=== PATIENT | female | born 1950 | race Caucasian/White ===

== ENCOUNTER 2018-03-23 09:52 | Day surgery (SDC) | payer MEDICARE, OTHER ==
[2018-03-20 16:18] VITALS: BMI 36.8
[~2018-03-23 09:52] MED LIST: LACTATED RINGERS 1,000 ML IV SCH; LIDOCAINE 1% 20 ML VIAL (10MG/ML) FOR IV START INTRADERMA PRN
[2018-03-23 10:32] VITALS: RESP 16; TEMP 97.2
[2018-03-23] MEDS ORDERED: PROPOFOL 10 MG/ML 20 ML VIAL IV ONE (11:21)
[2018-03-23] MEDS ORDERED: LIDOCAINE 1% INJ 10MG/ML (20 ML MDV) ONE (11:21)
--- NOTE | 2018-03-23 11:44 | P.PCN ---
Date of Procedure: 03/23/18 Procedure(s) Performed: Brief history: Patient is a pleasant 75-year-old white female, scheduled for an elective upper endoscopy as well as colonoscopy as a part of evaluation of long-standing history of GERD/family history of esophageal cancer. She is also scheduled for colonoscopy as a part of screening for colorectal neoplasia Procedure performed: Esophagogastroduodenoscopy with biopsy Colonoscopy Preoperative diagnosis: Long-standing history of GERD Screening for colon cancer Anesthesia: MAC Procedure: After informed consent was obtained from the patient was brought into the endoscopy unit and IV sedation was administered by anesthesia under continuous monitoring. Initially upper endoscopy was done. The Olympus GF 160 video endoscope was inserted inserted into the mouth and esophagus intubated without any difficulty and was gradually advanced into the stomach and duodenum and carefully examined. The bulb and second part of the duodenum appeared normal. The scope was then withdrawn into the stomach adequately insufflated with air and upon careful examination the antrum had nodular gastritis and biopsies were done from this area. The body, cardia and fundus appeared normal. The scope was then withdrawn into the esophagus. The GE junction was located at 40 cm to the incisors. there were 2 small islands of Marlow's appearing mucosa just proximal to the GE junction measuring 1-2 mm in size both of which were biopsied. The GE junction was regular with no erythema erosions or ulcerations. Rest of the esophagus appeared normal. Patient tolerated the procedure well. At this time the patient continued to remain sedation. Initial digital rectal examination was normal. Olympus CF 160 video colonoscope was then inserted into the rectum and gradually advanced to the cecum without any difficulty. Careful examination was performed as the scope was gradually being withdrawn. The prep was excellent. The cecum, ascending colon, transverse colon, descending colon, sigmoid colon and rectum appeared normal. Retroflexion was performed in the rectum and no lesions were noted. Patient tolerated the procedure well. Impression: 1. 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 Colonoscopy was within normal limits with no evidence of colitis or colorectal neoplasia Recommendations: Findings of this examination were discussed with the patient as well as her family. She was advised to follow with the biopsy results. If the biopsy confirms presence of Marlow's esophagus, she can have a repeat upper endoscopy in 2 years. She can also have a repeat screening colonoscopy in 10 years
[2018-03-23 12:04] VITALS: BP 158/96; PULSE 70
== END 2018-03-23 12:39 | disposition home or self-care (01) ==
LOC: ORWHC2ENDO 09:52
PROVIDERS: ATTEND Internal Medicine Gastroenterology
DX: Z12.11 Encounter for screening for malignant neoplasm of colon (principal); K29.50 Unspecified chronic gastritis without bleeding; K21.0 Gastro-esophageal reflux disease with esophagitis; R19.4 Change in bowel habit; I10 Essential (primary) hypertension; E78.5 Hyperlipidemia, unspecified; Z72.0 Tobacco use; E07.9 Disorder of thyroid, unspecified; F39 Unspecified mood [affective] disorder; Z79.899 Other long term (current) drug therapy; Z80.0 Family history of malignant neoplasm of digestive organs; Z79.890 Hormone replacement therapy
CPT/HCPCS: 88305; 43239; J2001; J2704; G0121

== ENCOUNTER → 2018-03-26 | Outpatient (CLI) | payer MEDICARE, OTHER ==
--- NOTE | 2018-03-26 23:11 | BD ---
EXAMINATION TYPE: Axial Bone Density DATE OF EXAM: 03/26/2018 COMPARISON: NONE CLINICAL HISTORY: 68 year-old female age related osteoporosis Height: 65 Weight: 231.5 FRAX RISK QUESTIONS: Alcohol (3 or more units per day): no Family History (Parent hip fracture): no Glucocorticoids (More than 3mos): no (Ex: prednisone, prednisolone, methylprednisolone, dexamethasone, and hydrocortisone). History of Fracture in Adulthood: no Secondary Osteoporosis: 1. Type 1 Diabetes: no 2. Hyperthyroidism: no 3. Menopause before 45: no 4. Malnutrition: no 5. Chronic liver disease: no Rheumatoid Arthritis: no Current Tobacco Use: yes RISK FACTORS HISTORY OF: Surgery to Spine/Hip(right/left)/Wrist (right/left): lumbar spine surg When: 2 years ago Family History of Osteoporosis: yes Active: yes Diet low in dairy products/other sources of calcium: yes Postmenopausal woman: age 54 Lost more than 2 inches in height since high school: no MEDICATIONS: clotrimazole, tramadol, ropinirole, acyclovir, mupirocin, gabapentin, Thyroid Medications: thyroid How Lon years Additional History: EXAM MEASUREMENTS: Bone mineral densitometry was performed using the [employer] System. Bone mineral density about the R hip (g/cm2): 0.982 Bone mineral density about the L hip (g/cm2): 1.014 T Score values are as follows: -----R Neck: -0.4 -----L Neck: -0.2 -----R Total: 0.1 -----L Total: 0.4 Bone mineral density : baseline Bone mineral density about the L Wrist (g/cm2): 0.672 T Score values are as follows: -----Dist. R+U: -1.1 -----Prox. R+U: 0.9 -----Radius total: 0.0 Bone mineral density : baseline IMPRESSION: Normal (Values between +1 and -1 indicate normal bone mass) as measured in the left wrist and bilater al hips. Consider repeating this study in 5 years or sooner if there is some new clinical indication . NOTE: T-SCORE=SD OF THE YOUNG ADULT MEAN.
--- NOTE | 2018-04-02 09:36 | MM ---
Reason for exam: screening (asymptomatic). History: Patient is postmenopausal. Physical Findings: A clinical breast exam by your physician is recommended on an annual basis and results should be correlated with mammographic findings. MG 3D Screening Mammo W/Cad Bilateral CC and MLO view(s) were taken. No prior studies available for comparison. The breast tissue is almost entirely fat. Finding: There is a typically benign equal density (isodense), partially obscured round mass in the middle position of the right breast on MLO view. ASSESSMENT: Probably benign, BI-RAD 3 RECOMMENDATION: Follow-up diagnostic mammogram of the right breast in 6 months.
== END | disposition home or self-care (01) ==
LOC: RADMAMWWP 15:29
PROVIDERS: ATTEND Internal Medicine
DX: Z12.31 Encounter for screening mammogram for malignant neoplasm of breast (principal); M81.0 Age-related osteoporosis without current pathological fracture
CPT/HCPCS: 77063; 77067; 77080

== ENCOUNTER → 2018-05-21 | Outpatient (CLI) | payer MEDICARE, OTHER | END | disposition home or self-care (01) | LOC: LABWHC1 09:43 | PROVIDERS: ATTEND Nurse Practitioner Acute Care | DX: Z51.81 Encounter for therapeutic drug level monitoring (principal) | CPT/HCPCS: 36415; 82565; 84520 ==

== ENCOUNTER → 2018-06-22 | Outpatient (CLI) | payer MEDICARE, OTHER ==
[2018-06-22 07:56] LABS: Basophils % (A) 1 %; Eosinophils # (A) 0.2 k/uL (0-0.7); Eosinophils % (A) 3 %; HCT 47.3 % (34.0-46.0); HGB 15.6 gm/dL (11.4-16.0); Lymphocytes # (A) 0.7 k/uL (1.0-4.8); Lymphocytes % (A) 12 %; MCH 30.1 pg (25.0-35.0); MCV 91.3 fL (80.0-100.0); Mean Platelet Volume 6.3; Monocytes # (A) 0.4 k/uL (0-1.0); Monocytes % (A) 7 %; Neutrophils # (A) 4.1 k/uL (1.3-7.7); Neutrophils % (A) 75 %; Platelet Count 180 k/uL (150-450); RBC 5.18 m/uL (3.80-5.40); RDW 13.7 % (11.5-15.5); WBC 5.5 k/uL (3.8-10.6)
[2018-06-22 11:13] LABS: Albumin 4.2 g/dL (3.80-4.90); Albumin/Globulin Ratio 2.33 (1.60-3.17); Anion Gap 8.4 mmol/L (4.00-12.00); Calcium 9.2 mg/dL (8.7-10.3); Carbon Dioxide 31.6 mmol/L (21.6-31.8); Globulin 1.8 g/dL (1.6-3.3); LDL Cholesterol,Calculated 90.2 mg/dL (0.0-131.0); Potassium 4.5 mmol/L (3.5-5.5); Total Bilirubin 0.8 mg/dL (0.2-1.2); VLDL Calculation 67.8 mg/dL (5.00-40.00)
[2018-06-22 11:20] LABS: T4, Free (Free Thyroxine) 1.3 ng/dL (0.80-1.80)
== END | disposition home or self-care (01) ==
LOC: LABWHC1 06:49
PROVIDERS: ATTEND Internal Medicine
DX: Z00.00 Encounter for general adult medical examination without abnormal findings (principal); E78.00 Pure hypercholesterolemia, unspecified; G35 Multiple sclerosis
CPT/HCPCS: 36415; 80053; 80061; 82607; 82746; 84439; 84443; 85025

== ENCOUNTER → 2018-08-16 | Outpatient (CLI) | payer MEDICARE, OTHER ==
[2018-08-16 12:02] LABS: Basophils % (A) 1 %; Eosinophils # (A) 0.3 k/uL (0-0.7); Eosinophils % (A) 4 %; HCT 47.4 % (34.0-46.0); HGB 15.5 gm/dL (11.4-16.0); Lymphocytes # (A) 0.6 k/uL (1.0-4.8); Lymphocytes % (A) 9 %; MCH 29.4 pg (25.0-35.0); MCHC 32.7 g/dL (31.0-37.0); Mean Platelet Volume 7.6; Monocytes # (A) 0.3 k/uL (0-1.0); Monocytes % (A) 4 %; Neutrophils # (A) 5.7 k/uL (1.3-7.7); Neutrophils % (A) 80 %; Platelet Count 280 k/uL (150-450); RBC 5.27 m/uL (3.80-5.40); RDW 14.5 % (11.5-15.5); WBC 7.2 k/uL (3.8-10.6)
[2018-08-16 20:29] LABS: Albumin 4.7 g/dL (3.80-4.90); Albumin/Globulin Ratio 2.94 (1.60-3.17); Anion Gap 9.3 mmol/L (4.00-12.00); Calcium 9.6 mg/dL (8.7-10.3); Carbon Dioxide 25.7 mmol/L (21.6-31.8); Globulin 1.6 g/dL (1.6-3.3); Total Bilirubin 0.5 mg/dL (0.2-1.2); Total Protein 6.3 g/dL (6.2-8.2)
[2018-08-16 20:43] LABS: Vitamin D 25 Hydroxy 28.9 ng/mL (30.0-100.0)
== END | disposition home or self-care (01) ==
LOC: LABWHC1 10:24
PROVIDERS: ATTEND Nurse Practitioner Acute Care
DX: G35 Multiple sclerosis (principal); E55.9 Vitamin D deficiency, unspecified; M35.3 Polymyalgia rheumatica
CPT/HCPCS: 36415; 80053; 82306; 82607; 84207; 85025

== ENCOUNTER → 2018-10-30 | Outpatient (CLI) | payer MEDICARE, OTHER ==
[2018-10-30 09:00] LABS: Basophils % (A) 1 %; Eosinophils # (A) 0.3 k/uL (0-0.7); Eosinophils % (A) 5 %; HCT 44.7 % (34.0-46.0); HGB 14.2 gm/dL (11.4-16.0); Lymphocytes # (A) 0.6 k/uL (1.0-4.8); Lymphocytes % (A) 12 %; MCH 28.1 pg (25.0-35.0); MCHC 31.8 g/dL (31.0-37.0); MCV 88.3 fL (80.0-100.0); Mean Platelet Volume 7.1; Monocytes # (A) 0.3 k/uL (0-1.0); Monocytes % (A) 5 %; Neutrophils # (A) 3.6 k/uL (1.3-7.7); Neutrophils % (A) 73 %; Platelet Count 212 k/uL (150-450); RBC 5.06 m/uL (3.80-5.40); RDW 12.8 % (11.5-15.5)
[2018-10-30 16:40] LABS: African American GFR (CKD) 66.6 (60.0-200.0); Albumin 4.5 g/dL (3.80-4.90); Albumin/Globulin Ratio 2.25 (1.60-3.17); Anion Gap 11.1 mmol/L (4.00-12.00); Calcium 9.4 mg/dL (8.7-10.3); Carbon Dioxide 27.9 mmol/L (21.6-31.8); Potassium 4.8 mmol/L (3.5-5.5); Total Bilirubin 0.5 mg/dL (0.3-1.2); Total Protein 6.5 g/dL (6.2-8.2)
== END | disposition home or self-care (01) ==
LOC: LABWHC1 08:09
PROVIDERS: ATTEND Nurse Practitioner Acute Care
DX: E55.9 Vitamin D deficiency, unspecified (principal); G35 Multiple sclerosis; Z51.81 Encounter for therapeutic drug level monitoring
CPT/HCPCS: 36415; 80053; 82607; 84207; 85025

== ENCOUNTER → 2018-11-21 | Outpatient (CLI) | payer MEDICARE, OTHER ==
--- NOTE | 2018-11-21 14:37 | US ---
EXAMINATION TYPE: US liver DATE OF EXAM: 11/21/2018 COMPARISON: NONE CLINICAL HISTORY: R94.5 Abnormal LFT. abnormal labs. No pain. NPO. EXAM MEASUREMENTS: Liver Length: 18.7 cm Gallbladder Wall: 0.2 cm CBD: 0.3 cm CHD: 0.3 cm Right Kidney: 10.5 x 5.1 x 4.8 cm Pancreas: Appears echogenic in appearance Liver: Moderate fatty infiltration liver with diminished attenuation in heterogenous appearance. Gallbladder: Mobile echogenic focus with shadow- 1.4 cm Evidence for sonographic Simmons's sign: neg CBD: wnl CHD: wnl Right Kidney: Lower pole appears hyperechoic compared to upper pole, could be technical IMPRESSION: 1. Cholelithiasis. 2. Moderate fatty infiltration liver.
== END | disposition home or self-care (01) ==
LOC: RADUSWWP 07:49
PROVIDERS: ATTEND Internal Medicine Geriatric Medicine
DX: K76.0 Fatty (change of) liver, not elsewhere classified (principal); K80.20 Calculus of gallbladder without cholecystitis without obstruction
CPT/HCPCS: 76705

== ENCOUNTER → 2018-12-17 | Outpatient (CLI) | payer MEDICARE, OTHER ==
--- NOTE | 2018-12-17 08:39 | MM ---
Reason for exam: follow-up at short interval from prior study. Last mammogram was performed 9 months ago. History: Patient is postmenopausal. Physical Findings: Nurse did not find any significant physical abnormalities on exam. MG 3D Diag Mammo W/Cad RT CC and MLO view(s) were taken of the right breast. Prior study comparison: March 26, 2018, bilateral MG 3d screening mammo w/cad. There are scattered fibroglandular densities. Stable superficial nodule. No significant new findings when compared with previous films. These results were verbally communicated with the patient and result sheet given to the patient on 12/17/18. ASSESSMENT: Benign, BI-RAD 2 RECOMMENDATION: Return to routine screening mammogram schedule for both breasts. Back on schedule.
== END ==
LOC: RADMAMWWP 07:15
PROVIDERS: ATTEND Internal Medicine
DX: R92.8 Other abnormal and inconclusive findings on diagnostic imaging of breast (principal); R92.2 Inconclusive mammogram
CPT/HCPCS: 77061; 77065

== ENCOUNTER → 2019-01-24 | Outpatient (CLI) | payer MEDICARE, OTHER ==
[2019-01-24 17:53] LABS: African American GFR (CKD) 75.6 (60.0-200.0); Albumin 4.5 g/dL (3.80-4.90); Calcium 9.2 mg/dL (8.7-10.3); Chol/HDL Ratio 2.88; Globulin 1.5 g/dL (1.6-3.3); LDL Cholesterol,Calculated 80.2 mg/dL (0.0-131.0); Potassium 4.6 mmol/L (3.5-5.5); Total Bilirubin 0.4 mg/dL (0.2-1.2); VLDL Calculation 47.8 mg/dL (5.00-40.00)
[2019-01-24 21:37] LABS: Hemoglobin A1C 6.3 % (4.0-6.0)
== END | disposition home or self-care (01) ==
LOC: LABWHC1 11:16
PROVIDERS: ATTEND Internal Medicine
DX: E11.9 Type 2 diabetes mellitus without complications (principal); E03.9 Hypothyroidism, unspecified; K76.0 Fatty (change of) liver, not elsewhere classified
CPT/HCPCS: 36415; 80053; 80061; 83036; 84443

== ENCOUNTER → 2019-04-08 | Outpatient (CLI) | payer MEDICARE, OTHER ==
[2019-04-08 16:45] LABS: ALT 88 U/L (8-44); AST 54 U/L (13-35); Albumin/Globulin Ratio 2.71 (1.60-3.17); Alkaline Phosphatase 105 U/L (41-126); Bilirubin, Conjugated <0.20 mg/dL (0.20-0.40); Globulin 1.7 g/dL (1.6-3.3); Total Bilirubin 0.4 mg/dL (0.3-1.2); Total Protein 6.3 g/dL (6.2-8.2)
[2019-04-09 17:38] LABS: Hepatitis A Antibody IgM Non-Reactive (Non-Reactive); Hepatitis B Core IgM Non-Reactive (Non-Reactive); Hepatitis B Surface Antigen Non-Reactive (Non-Reactive); Hepatitis C IgG Antibody Non-Reactive (Non-Reactive)
== END | disposition home or self-care (01) ==
LOC: LABWHC1 07:44
PROVIDERS: ATTEND Nurse Practitioner
DX: K76.0 Fatty (change of) liver, not elsewhere classified (principal)
CPT/HCPCS: 36415; 80074; 80076; 81596

== ENCOUNTER → 2019-06-12 | Outpatient (CLI) | payer MEDICARE, OTHER ==
[2019-06-12 10:31] LABS: Basophils # (A) 0.1 k/uL (0-0.2); Basophils % (A) 1 %; Eosinophils # (A) 0.1 k/uL (0-0.7); Eosinophils % (A) 3 %; HCT 44.4 % (34.0-46.0); HGB 13.9 gm/dL (11.4-16.0); Lymphocytes # (A) 0.6 k/uL (1.0-4.8); Lymphocytes % (A) 13 %; MCH 28.2 pg (25.0-35.0); MCHC 31.2 g/dL (31.0-37.0); MCV 90.3 fL (80.0-100.0); Mean Platelet Volume 7.9; Monocytes # (A) 0.2 k/uL (0-1.0); Monocytes % (A) 6 %; Neutrophils % (A) 74 %; Platelet Count 222 k/uL (150-450); RBC 4.92 m/uL (3.80-5.40); RDW 13.1 % (11.5-15.5); WBC 4.1 k/uL (3.8-10.6)
[2019-06-12 16:42] LABS: African American GFR (CKD) 75.1 (60.0-200.0); Albumin 4.4 g/dL (3.80-4.90); Albumin/Globulin Ratio 2.75 (1.60-3.17); Anion Gap 9.1 mmol/L (4.00-12.00); BUN/Creat Ratio 23.33 Ratio (12.00-20.00); Calcium 9.5 mg/dL (8.7-10.3); Carbon Dioxide 29.9 mmol/L (21.6-31.8); Globulin 1.6 g/dL (1.6-3.3); Non-African American GFR(CKD) 64.8 (60.0-200.0); Potassium 4.9 mmol/L (3.5-5.5); Total Bilirubin 0.4 mg/dL (0.2-1.2)
[2019-06-12 18:41] LABS: Hemoglobin A1C 5.8 % (4.0-6.0)
== END | disposition home or self-care (01) ==
LOC: LABWHC1 08:38
PROVIDERS: ATTEND Internal Medicine
DX: K76.0 Fatty (change of) liver, not elsewhere classified (principal); E78.00 Pure hypercholesterolemia, unspecified; E11.9 Type 2 diabetes mellitus without complications; E03.9 Hypothyroidism, unspecified; E55.9 Vitamin D deficiency, unspecified; R53.83 Other fatigue
CPT/HCPCS: 36415; 80053; 82306; 82550; 82607; 83036; 84207; 84443; 85025

== ENCOUNTER → 2019-10-14 | Outpatient (CLI) | payer MEDICARE, OTHER ==
[2019-10-14 11:11] LABS: Albumin 4.3 g/dL (3.5-5.0); Calcium 9.5 mg/dL (8.4-10.2); Potassium 4.7 mmol/L (3.5-5.1); Total Bilirubin 0.6 mg/dL (0.2-1.3); Total Protein 7.1 g/dL (6.3-8.2)
--- NOTE | 2019-10-15 11:06 | MM ---
Reason for exam: screening (asymptomatic). Last mammogram was performed 10 months ago. History: Patient is postmenopausal. Physical Findings: A clinical breast exam by your physician is recommended on an annual basis and results should be correlated with mammographic findings. MG 3D Screening Mammo W/Cad Bilateral CC and MLO view(s) were taken. Prior study comparison: December 17, 2018, right breast MG 3d diag mammo w/cad RT. March 26, 2018, bilateral MG 3d screening mammo w/cad. There are scattered fibroglandular densities. Finding: There is an intermediate concern, suspicious 8 mm high density mass in the upper outer quadrant of the right breast consistent with mass. New finding since December 17, 2018 and March 26, 2018. ASSESSMENT: Incomplete: need additional imaging evaluation, BI-RAD 0 RECOMMENDATION: Ultrasound of the right breast. [facility] will attempt to contact patient to return for ultrasound.
== END | disposition home or self-care (01) ==
LOC: RADMAMWWP 09:58
PROVIDERS: ATTEND Internal Medicine
DX: Z12.31 Encounter for screening mammogram for malignant neoplasm of breast (principal); I10 Essential (primary) hypertension
CPT/HCPCS: 77063; 77067; 80053; 80061

== ENCOUNTER → 2019-10-24 | Outpatient (CLI) | payer MEDICARE, OTHER ==
--- NOTE | 2019-10-24 10:24 | USB ---
Reason for exam: additional evaluation requested from abnormal screening. History: Patient is postmenopausal. Physical Findings: Nurse Summary: right breast 11 o'clock superficial sebaceous cyst x 7 years per patient, increased in size x 6 months (nurse mj). US Breast Workup Limited RT Technologist: Mounika Frey Right limited breast ultrasound including focal area of concern, retroareolar and axilla demonstrates a 0.8 x 0.8 x 0.6cm circular, solid lesion at 11 o'clock extending to dermal layer. Can be seen om skin surface per nurse. These results were verbally communicated with the patient and result sheet given to the patient on 10/24/19. ASSESSMENT: Low Suspicious BI-RAD 4A RECOMMENDATION: Favor Benign lesion such as epidermal inclusion cyst but Surgical consultation of the right breast. Dermatology consult for excision advised to rule out malignancy in palpable enlarging lesion. Called Dr. Garcia's office with mammographic findings and office to contact patient to set up dermatology consult. PRELIMINARY REPORT CALLED AND FAXED TO DR. GARCIA ON 10/24/19. [facility]
== END | disposition home or self-care (01) ==
LOC: RADUSWWP 09:28
PROVIDERS: ATTEND Internal Medicine
DX: R92.8 Other abnormal and inconclusive findings on diagnostic imaging of breast (principal)

== ENCOUNTER → 2019-10-29 | Outpatient (CLI) | payer MEDICARE, OTHER ==
--- NOTE | 2019-10-29 12:17 | FL ---
Modified barium swallow. HISTORY: Dysphagia. Modified barium swallow was performed with the department of speech pathology. The patient was prese nted with various consistencies of barium. There is no evidence for aspiration or penetration. Full report is to follow from the department of speech pathology. Impression: Normal study.
== END | disposition home or self-care (01) ==
LOC: RADFLMAIN 10:56
PROVIDERS: ATTEND Psychiatry & Neurology Neurology
DX: R13.10 Dysphagia, unspecified (principal)
CPT/HCPCS: 74230

== ENCOUNTER → 2019-11-12 | Outpatient (CLI) | payer MEDICARE, OTHER ==
[2019-11-12 11:07] LABS: Basophils % (A) 1 %; Eosinophils # (A) 0.1 k/uL (0-0.7); Eosinophils % (A) 4 %; HCT 40.7 % (34.0-46.0); HGB 13.1 gm/dL (11.4-16.0); Lymphocytes # (A) 0.4 k/uL (1.0-4.8); Lymphocytes % (A) 10 %; MCH 28.5 pg (25.0-35.0); MCHC 32.2 g/dL (31.0-37.0); MCV 88.4 fL (80.0-100.0); Mean Platelet Volume 7.6; Monocytes # (A) 0.2 k/uL (0-1.0); Monocytes % (A) 6 %; Neutrophils # (A) 2.6 k/uL (1.3-7.7); Neutrophils % (A) 75 %; Platelet Count 163 k/uL (150-450); RBC 4.61 m/uL (3.80-5.40); RDW 14.7 % (11.5-15.5); WBC 3.5 k/uL (3.8-10.6)
[2019-11-12 16:55] LABS: African American GFR (CKD) 75.1 (60.0-200.0); Albumin 4.1 g/dL (3.80-4.90); Albumin/Globulin Ratio 2.41 (1.60-3.17); Anion Gap 6.4 mmol/L (4.00-12.00); BUN/Creat Ratio 24.44 Ratio (12.00-20.00); Calcium 9.2 mg/dL (8.7-10.3); Carbon Dioxide 30.6 mmol/L (21.6-31.8); Chol/HDL Ratio 2.03; Globulin 1.7 g/dL (1.6-3.3); LDL Cholesterol,Calculated 64.2 mg/dL (0.0-131.0); Non-African American GFR(CKD) 64.8 (60.0-200.0); Total Bilirubin 0.5 mg/dL (0.2-1.2); Total Protein 5.8 g/dL (6.2-8.2); VLDL Calculation 16.8 mg/dL (5.00-40.00)
[2019-11-12 18:29] LABS: Hemoglobin A1C 6.4 % (4.0-6.0)
== END | disposition home or self-care (01) ==
LOC: LABWHC1 09:34
PROVIDERS: ATTEND Internal Medicine
DX: I10 Essential (primary) hypertension (principal); G35 Multiple sclerosis; E11.9 Type 2 diabetes mellitus without complications; E78.00 Pure hypercholesterolemia, unspecified
CPT/HCPCS: 36415; 80053; 80061; 83036; 85025

== ENCOUNTER 2019-11-25 16:28 | Emergency (ER) | payer MEDICARE, OTHER ==
[2019-11-25 16:40] VITALS: BP 145/73; PULSE 92; RESP 18; TEMP 98.2
--- NOTE | 2019-11-25 18:16 | CT ---
EXAMINATION TYPE: CT facial bones wo con DATE OF EXAM: 11/25/2019 COMPARISON: None HISTORY: fall injury CT DLP: 1239.1 mGycm Automated exposure control for dose reduction was used. Images were obtained from the bottom of the mandible to the top of the frontal sinuses without contra st. The mandibular ring appears intact. Temporomandibular joints appear intact. Zygomatic arches appear n ormal. Nasal bone appears intact. There is no evidence of orbital blowout fracture. There is normal a eration of the paranasal sinuses. Orbital margins are intact. There is no evidence of retro-orbital m ass. The globes are symmetric. There is mild left frontal scalp soft tissue swelling. The frontal bon e appears intact. IMPRESSION: No fracture seen. Mild frontal scalp soft tissue swelling.
--- NOTE | 2019-11-25 18:24 | CT ---
EXAMINATION TYPE: CT brain luis carlos olivarez DATE OF EXAM: 11/25/2019 COMPARISON: None HISTORY: fall injury CT DLP: 1239.1 mGycm Automated exposure control for dose reduction was used. There is some cerebral cortical atrophy. There is no mass effect nor midline shift. There is no sign of intracranial hemorrhage. The calvarium is intact. Cervical vertebra have normal alignment. There is old anterior fusion surgery from C4 to C7. There is anterior spur formation at C6-7 and C7-T1. Facet joints are intact. There is a mild relative spinal stenosis at levels from C4 to C6. The skull base is intact. There is normal aeration of the temporal bones. IMPRESSION: Cerebral atrophy. No acute intracranial abnormality. Cervical spine fusion surgery. Multilevel spondylotic changes. Mild relative spinal stenosis in the l ower cervical spine. No cervical spine fracture seen.
--- NOTE | 2019-11-25 18:57 | ED ---
Head Injury HPI - General Chief complaint: Head Injury Stated complaint: Fall Time Seen by Provider: 11/25/19 16:35 Source: patient Mode of arrival: wheelchair Limitations: physical limitation - History of Present Illness Initial comments: Patient is a 6-year-old female past history of MS who presents emergency department after she sustained a fall. Patient states that she was going to her doctor's office to receive a steroid injection. She went to step over a curb when she did not clear the step and fell forward hitting her nasal bridge and left side of her forehead. Denies losing consciousness. She is not on any blood thinners. She did go into the office and was evaluated. They cleaned the wound and placed a Band-Aid over the site. She did have some epistaxis that stopped. Her primary care doctor did recommend that she went to the emergency department for evaluation. She denies headache or visual changes. No neck or back pain. No numbness, tingling or weakness in her extremities. Denies any additional injuries. No nausea or vomiting. No other alleviating, precipitating or modifying factors - Related Data Home Medications Medication Instructions Recorded Confirmed Acyclovir [Zovirax] 400 mg PO BID 03/20/18 03/23/18 Amitriptyline HCl [Elavil] 50 mg PO HS 03/20/18 03/23/18 Aspirin [Adult Low Dose Aspirin EC] 81 mg PO DAILY 03/20/18 03/23/18 Colestipol HCl 2 tab PO BID 03/20/18 03/23/18 Dimethyl Fumarate [Tecfidera] 240 mg PO BID 03/20/18 03/23/18 Ezetimibe [Zetia] 10 mg PO HS 03/20/18 03/23/18 Gabapentin [Neurontin] 600 mg PO BID 03/20/18 03/23/18 Levothyroxine Sodium 25 mcg PO DAILY 03/20/18 03/23/18 Omeprazole [PriLOSEC] 20 mg PO AC-BRKFST 03/20/18 03/23/18 buPROPion HCL [Wellbutrin XL] 300 mg PO DAILY 03/20/18 03/23/18 lisinopriL 40 mg PO HS 03/20/18 03/23/18 modafiniL [Provigil] 200 mg PO DAILY 11/13/18 11/16/18 rOPINIRole HCL [Requip] 1 mg PO HS 03/20/18 03/23/18 Allergies/Adverse reactions: Allergies Allergy/AdvReac Type Severity Reaction Status Date / Time No Known Allergies Allergy Verified 11/25/19 16:40 Review of Systems ROS Statement: Those systems with pertinent positive or pertinent negative responses have been documented in the HPI. ROS Other: All systems not noted in ROS Statement are negative. Past Medical History Past Medical History: Diabetes Mellitus, GERD/Reflux, Hyperlipidemia, Hypertension, Osteoarthritis (OA), Thyroid Disorder Additional Past Medical History / Comment(s): MULTIPLE SCLEROSIS, GENITAL HERPES, ANEMIA, OCCASIONAL IRREGULAR HEART BEAT., HX OF DIABETES WITH INSULIN - NO RX NOW., USES WALKER AND W/C PRN. History of Any Multi-Drug Resistant Organisms: None Reported Past Surgical History: Back Surgery, Orthopedic Surgery Additional Past Surgical History / Comment(s): CARPAL TUNNEL, (2) SPINAL SURGERIES., EYELID SURGERY., NOSE SURGERY. Past Anesthesia/Blood Transfusion Reactions: No Reported Reaction, Motion Sickness Past Psychological History: No Psychological Hx Reported Smoking Status: Former smoker Past Alcohol Use History: Occasional Past Drug Use History: None Reported - Past Family History Mother Family Medical History: Cancer Additional Family Medical History / Comment(s): LEUKEMIA Brother(s) Family Medical History: Cancer Additional Family Medical History / Comment(s): BROTHER # 1 ESOPHAGEAL CANCER. BROTHER #2 PANCREATIC CANCER. BROTHER #3 STOMACH & ESOPHAGEAL CANCER General Exam Limitations: physical limitation General appearance: alert, in no apparent distress Head exam: Present: normocephalic, other (hematoma left frontal scalp - 2.5 x 2.0 cm. abrasion over nasal bridge - 1.5 x 1.0 cm. No active bleeding. No nasal hematoma. ) Eye exam: Present: normal appearance, PERRL, EOMI. Absent: scleral icterus, conjunctival injection, periorbital swelling ENT exam: Present: normal exam, mucous membranes moist Neck exam: Present: normal inspection. Absent: tenderness, meningismus, lymphadenopathy Respiratory exam: Present: normal lung sounds bilaterally. Absent: respiratory distress, wheezes, rales, rhonchi, stridor Cardiovascular Exam: Present: regular rate, normal rhythm, normal heart sounds. Absent: systolic murmur, diastolic murmur, rubs, gallop, clicks Extremities exam: Present: normal inspection, full ROM, normal capillary refill. Absent: tenderness, pedal edema, joint swelling, calf tenderness Course Vital Signs 11/25/19 16:36 Temperature 98.2 F Pulse Rate 92 Respiratory 18 Rate Blood Pressure 145/73 O2 Sat by Pulse 97 Oximetry Medical Decision Making - Medical Decision Making Upon arrival the patient was placed into room 22. A thorough history and physical exam was performed. No signs of septal hematoma. The patient was sent for a CT of her brain, cervical spine and facial bones. CT of the head and cervical spine demonstrates cerebral atrophy with no acute intercranial abnorma l. Cervical spine fusion surgery with multilevel spondylitic changes. Mild relative spinal stenosis in the lower cervical spine. No cervical spine fracture. CT of the facial bones demonstrates no acute fracture. Mild frontal scalp soft tissue swelling. Patient is reevaluated. Continues to refuse pain medications. I did discuss the diagnosis, differential and treatment options. Patient will be discharged home at this time is to follow-up with her primary care physician in 2-4 days. Return to the emergency department for any new or worsening symptoms. Patient was discharged home in stable condition Disposition Clinical Impression: Contusion of scalp, Concussion without loss of consciousness Disposition: HOME SELF-CARE Condition: Stable Instructions (If sedation given, give patient instructions): Concussion (ED) Additional Instructions: Please follow-up with your primary care doctor. Return to the emergency room for any new or worsening symptoms Is patient prescribed a controlled substance at d/c from ED?: No Referrals: Nancy Knight MD [Primary Care Provider] - 1-2 days Time of Disposition: 18:56
== END 2019-11-25 19:10 | disposition home or self-care (01) ==
LOC: EC 16:28
DX: S06.0X0A Concussion without loss of consciousness, initial encounter (principal); S00.03XA Contusion of scalp, initial encounter; S00.31XA Abrasion of nose, initial encounter; G31.9 Degenerative disease of nervous system, unspecified; M48.02 Spinal stenosis, cervical region; E11.9 Type 2 diabetes mellitus without complications; E78.5 Hyperlipidemia, unspecified; K21.9 Gastro-esophageal reflux disease without esophagitis; I10 Essential (primary) hypertension; E07.9 Disorder of thyroid, unspecified; G35 Multiple sclerosis; Z79.4 Long term (current) use of insulin; Z79.82 Long term (current) use of aspirin; Z79.890 Hormone replacement therapy; Z79.899 Other long term (current) drug therapy; Z99.89 Dependence on other enabling machines and devices; Z87.891 Personal history of nicotine dependence; W18.39XA Other fall on same level, initial encounter
CPT/HCPCS: 70450; 70486; 72125; 99284

== ENCOUNTER → 2020-04-15 | Outpatient (CLI) | payer MEDICARE, OTHER ==
[2020-04-15 08:27] LABS: Basophils % (A) 1 %; Eosinophils # (A) 0.2 k/uL (0-0.7); Eosinophils % (A) 5 %; HCT 43.7 % (34.0-46.0); Lymphocytes # (A) 0.6 k/uL (1.0-4.8); Lymphocytes % (A) 13 %; MCH 27.6 pg (25.0-35.0); MCV 86.3 fL (80.0-100.0); Mean Platelet Volume 7.8; Monocytes # (A) 0.3 k/uL (0-1.0); Monocytes % (A) 6 %; Neutrophils # (A) 3.5 k/uL (1.3-7.7); Neutrophils % (A) 74 %; Platelet Count 218 k/uL (150-450); RBC 5.06 m/uL (3.80-5.40); RDW 13.8 % (11.5-15.5); WBC 4.7 k/uL (3.8-10.6)
[2020-04-15 15:41] LABS: African American GFR (CKD) 65.6 (60.0-200.0); Albumin 4.6 g/dL (3.80-4.90); Albumin/Globulin Ratio 2.71 (1.60-3.17); Anion Gap 10.5 mmol/L (4.00-12.00); Calcium 9.6 mg/dL (8.7-10.3); Carbon Dioxide 26.5 mmol/L (21.6-31.8); Chol/HDL Ratio 2.49; Globulin 1.7 g/dL (1.6-3.3); Non-African American GFR(CKD) 56.6 (60.0-200.0); Potassium 4.9 mmol/L (3.5-5.5); Total Bilirubin 0.4 mg/dL (0.3-1.2); Total Protein 6.3 g/dL (6.2-8.2)
[2020-04-15 17:18] LABS: Hemoglobin A1C 6.3 % (4.0-6.0)
== END | disposition home or self-care (01) ==
LOC: LABWHC1 07:31
PROVIDERS: ATTEND Internal Medicine
DX: I10 Essential (primary) hypertension (principal); E11.9 Type 2 diabetes mellitus without complications; E78.00 Pure hypercholesterolemia, unspecified; E03.9 Hypothyroidism, unspecified
CPT/HCPCS: 36415; 80053; 80061; 83036; 84443; 85025

== ENCOUNTER → 2020-08-18 | Outpatient (CLI) | payer MEDICARE, OTHER ==
[2020-08-18 18:48] LABS: Basophils # (A) 0.03 X 10*3/uL (0.00-0.10); Basophils % (A) 0.6 %; Eosinophils % (A) 3.8 %; HCT 45.6 % (37.2-46.3); HGB 13.6 g/dL (12.0-15.0); Lymphocytes # (A) 0.59 X 10*3/uL (0.90-5.00); Lymphocytes % (A) 11.1 %; MCH 25.1 pg (27.0-32.0); MCHC 29.8 g/dL (32.0-37.0); MCV 84.1 fL (80.0-97.0); Mean Platelet Volume 11.7 fL (9.5-12.2); Monocytes # (A) 0.41 X 10*3/uL (0.20-1.00); Monocytes % (A) 7.7 %; Neutrophils # (A) 4.07 X 10*3/uL (1.80-7.70); Neutrophils % (A) 76.4 %; Platelet Count 223 X 10*3/uL (140-440); RBC 5.42 X 10*6/uL (4.10-5.20); RDW 16.2 % (11.5-14.5); WBC 5.32 X 10*3/uL (4.50-10.00)
[2020-08-18 19:16] LABS: Anion Gap 8.1 mmol/L (4.00-12.00); Carbon Dioxide 24.9 mmol/L (21.6-31.8); Chol/HDL Ratio 3.07; LDL Cholesterol,Calculated 112.2 mg/dL (0.0-131.0); Potassium 4.6 mmol/L (3.5-5.5); VLDL Calculation 34.8 mg/dL (5.00-40.00)
[2020-08-18 19:17] LABS: African American GFR (CKD) 74.6 (60.0-200.0); Albumin 4.7 g/dL (3.80-4.90); Albumin/Globulin Ratio 2.94 (1.60-3.17); BUN/Creat Ratio 22.22 Ratio (12.00-20.00); Calcium 9.8 mg/dL (8.7-10.3); Globulin 1.6 g/dL (1.6-3.3); Non-African American GFR(CKD) 64.3 (60.0-200.0); Total Bilirubin 0.4 mg/dL (0.3-1.2); Total Protein 6.3 g/dL (6.2-8.2)
[2020-08-18 20:58] LABS: Hemoglobin A1C 6.4 % (4.0-6.0)
== END | disposition home or self-care (01) ==
LOC: LABWHC1 07:58
PROVIDERS: ATTEND Internal Medicine
DX: E03.9 Hypothyroidism, unspecified (principal); I10 Essential (primary) hypertension; E11.9 Type 2 diabetes mellitus without complications
CPT/HCPCS: 36415; 80053; 80061; 83036; 84443; 85025

== ENCOUNTER 2020-09-16 22:51 | Inpatient (IN) | payer MEDICARE, OTHER ==
--- NOTE | 2020-09-16 23:11 | ED ---
General Adult HPI - General Stated complaint: syncope Time Seen by Provider: 09/16/20 23:03 - History of Present Illness Initial comments: 70-year-old female with a past medical histories of diabetes mellitus, hyperlipidemia, hypertension, GERD, multiple sclerosis presents to the emergency room for a chief complaint of syncope. Patient reports that she stood up from sitting in a chair and must have passed out. She states the next thing she remembers she was laying on the floor. Patient states she has neck pain and upper back pain with movement. Patient denies any chest pain. Patient does admit she didn't feel well before standing up, thinks she may have felt a bit lightheaded.Patient has no other complaints at this time including shortness of breath, chest pain, abdominal pain, nausea or vomiting, headache, or visual changes. - Related Data Home Medications Medication Instructions Recorded Confirmed Acyclovir [Zovirax] 400 mg PO BID 03/20/18 03/23/18 Amitriptyline HCl [Elavil] 50 mg PO HS 03/20/18 03/23/18 Aspirin [Adult Low Dose Aspirin EC] 81 mg PO DAILY 03/20/18 03/23/18 Colestipol HCl 2 tab PO BID 03/20/18 03/23/18 Dimethyl Fumarate [Tecfidera] 240 mg PO BID 03/20/18 03/23/18 Ezetimibe [Zetia] 10 mg PO HS 03/20/18 03/23/18 Gabapentin [Neurontin] 600 mg PO BID 03/20/18 03/23/18 Levothyroxine Sodium 25 mcg PO DAILY 03/20/18 03/23/18 Omeprazole [PriLOSEC] 20 mg PO AC-BRKFST 03/20/18 03/23/18 buPROPion HCL [Wellbutrin XL] 300 mg PO DAILY 03/20/18 03/23/18 lisinopriL 40 mg PO HS 03/20/18 03/23/18 modafiniL [Provigil] 200 mg PO DAILY 03/20/18 03/23/18 rOPINIRole HCL [Requip] 1 mg PO HS 03/20/18 03/23/18 Allergies Allergy/AdvReac Type Severity Reaction Status Date / Time No Known Allergies Allergy Verified 09/16/20 23:22 Review of Systems ROS Statement: Those systems with pertinent positive or pertinent negative responses have been documented in the HPI. ROS Other: All systems not noted in ROS Statement are negative. Past Medical History Past Medical History: Diabetes Mellitus, GERD/Reflux, Hyperlipidemia, Hyper tension, Osteoarthritis (OA), Thyroid Disorder Additional Past Medical History / Comment(s): MULTIPLE SCLEROSIS, GENITAL HERPES, ANEMIA, OCCASIONAL IRREGULAR HEART BEAT., HX OF DIABETES WITH INSULIN - NO RX NOW., USES WALKER AND W/C PRN. History of Any Multi-Drug Resistant Organisms: None Reported Past Surgical History: Back Surgery, Orthopedic Surgery Additional Past Surgical History / Comment(s): CARPAL TUNNEL, (2) SPINAL SURGERIES., EYELID SURGERY., NOSE SURGERY. Past Anesthesia/Blood Transfusion Reactions: No Reported Reaction, Motion Sickness Past Psychological History: No Psychological Hx Reported Smoking Status: Former smoker Past Alcohol Use History: Occasional Past Drug Use History: None Reported - Past Family History Mother Family Medical History: Cancer Additional Family Medical History / Comment(s): LEUKEMIA Brother(s) Family Medical History: Cancer Additional Family Medical History / Comment(s): BROTHER # 1 ESOPHAGEAL CANCER. BROTHER #2 PANCREATIC CANCER. BROTHER #3 STOMACH & ESOPHAGEAL CANCER General Exam General appearance: alert, in no apparent distress Head exam: Present: atraumatic, normocephalic, normal inspection Eye exam: Present: normal appearance, PERRL, EOMI. Absent: scleral icterus, conjunctival injection, periorbital swelling ENT exam: Present: normal exam, mucous membranes moist Neck exam: Present: tenderness (Generalized right-sided paraspinal tenderness), other (C-collar in place) Respiratory exam: Present: normal lung sounds bilaterally. Absent: respiratory distress, wheezes, rales, rhonchi, stridor Cardiovascular Exam: Present: regular rate, normal rhythm, normal heart sounds. Absent: systolic murmur, diastolic murmur, rubs, gallop, clicks GI/Abdominal exam: Present: soft, normal bowel sounds. Absent: distended, tenderness, guarding, rebound, rigid Neurological exam: Present: alert, oriented X3 Course Vital Signs 09/16/20 23:14 Temperature 98.0 F Pulse Rate 66 Respiratory 18 Rate Blood Pressure 122/68 O2 Sat by Pulse 96 Oximetry EKG Findings - EKG Comments: EKG Findings:: Sinus rhythm with marked sinus arrhythmia, ventricular rate 93, VT interval 248, QTC 467 Medical Decision Making - Medical Decision Making Vitals are stable. Patient presents in c-collar with abrasion noted to the right cheek. Patient had a syncopal episode and did hit her head. She does not take blood thinners. EKG demonstrates a sinus arrhythmia. CBC unremarkable. CMP does show evidence of dehydration, patient was given 500 mL of fluid and magnesium was replaced. Brain and cervical spine CTs were negative. C-collar was removed. Thoracic spine CT showed no acute fracture. At this time patient will be admitted for cardiology consultation. Discussed case with Dr. Garcia who will admit patient. - Lab Data Result diagrams: 09/17/20 00:06 09/17/20 00:06 Lab Results 09/17/20 09/17/20 09/17/20 Range/Units 00:06 00:06 00:06 WBC 10.7 H (3.8-10.6) k/uL RBC 5.47 H (3.80-5.40) m/uL Hgb 14.1 (11.4-16.0) gm/dL Hct 45.4 (34.0-46.0) % MCV 83.0 (80.0-100.0) fL MCH 25.7 (25.0-35.0) pg MCHC 31.0 (31.0-37.0) g/dL RDW 15.8 H (11.5-15.5) % Plt Count 239 (150-450) k/uL MPV 7.9 Neutrophils % 88 % Lymphocytes % 6 % Monocytes % 4 % Eosinophils % 1 % Basophils % 0 % Neutrophils # 9.4 H (1.3-7.7) k/uL Lymphocytes # 0.6 L (1.0-4.8) k/uL Monocytes # 0.4 (0-1.0) k/uL Eosinophils # 0.1 (0-0.7) k/uL Basophils # 0.0 (0-0.2) k/uL Hypochromasia Slight PT 10.3 (9.0-12.0) sec INR 1.0 (<1.2) APTT 22.0 (22.0-30.0) sec Sodium 136 L (137-145) mmol/L Potassium 4.7 (3.5-5.1) mmol/L Chloride 101 (98-107) mmol/L Carbon Dioxide 25 (22-30) mmol/L Anion Gap 10 mmol/L BUN 29 H (7-17) mg/dL Creatinine 1.10 H (0.52-1.04) mg/dL Est GFR (CKD-EPI)AfAm 58 (>60 ml/min/1.73 sqM) Est GFR (CKD-EPI)NonAf 51 (>60 ml/min/1.73 sqM) Glucose 230 H (74-99) mg/dL Calcium 9.7 (8.4-10.2) mg/dL Magnesium 1.4 L (1.6-2.3) mg/dL Total Bilirubin 0.4 (0.2-1.3) mg/dL AST 37 H (14-36) U/L ALT 43 H (4-34) U/L Alkaline Phosphatase 113 (38-126) U/L Total Protein 6.8 (6.3-8.2) g/dL Albumin 4.4 (3.5-5.0) g/dL Disposition Clinical Impression: Syncope, Dehydration, Hypomagnesemia Disposition: ADMITTED IP TO THIS HOSP Is patient prescribed a controlled substance at d/c from ED?: No Referrals: Christie Garcia MD [Primary Care Provider] - 1-2 days Time of Disposition: 01:17
[2020-09-16] MEDS ORDERED: DIPH,PERTUS(ACELL)TETVAC-LF 0.5 ML VIAL IM ONE (23:35)
[2020-09-16] MEDS ORDERED: HYDROmorphone 0.5 MG/0.5 ML SYRINGE IVP STA (23:35)
--- NOTE | 2020-09-17 00:20 | CT ---
EXAMINATION TYPE: CT brain luis carlos olivarez DATE OF EXAM: 09/16/2020 COMPARISON: 11/25/2019 HISTORY: fall syncope CT DLP: 1613.3 mGycm Automated exposure control for dose reduction was used. There is cerebral atrophy. There is no mass effect nor midline shift. There is no sign of intracrania l hemorrhage. Calvarium is intact. Skull base is intact. There is normal aeration of the mastoid sinu ses. There is large empty sella. The cervical vertebra show some straightening. There is plate with screws fusing anteriorly the cervi andrew spine from C4 to C6. There is spurring of the endplates at C6-7. Facet joints are intact. There i s no evidence of a fracture. I see no bony destructive process. IMPRESSION: Cerebral atrophy. No acute intracranial abnormality. No change. Previous cervical spine fusion surgery. Spondylotic changes. No fracture. There is probably some mild bony spinal stenosis at C4-5 and C5-6. No change.
--- NOTE | 2020-09-17 00:21 | XR ---
EXAMINATION TYPE: XR chest 1V DATE OF EXAM: 09/16/2020 COMPARISON: NONE HISTORY: Fall. Pain. TECHNIQUE: Single view FINDINGS: Heart is normal. Lungs are clear. Costophrenic angles are clear. There are no hilar masses. Bony thorax is intact. IMPRESSION: No active cardiopulmonary disease. Normal heart.
--- NOTE | 2020-09-17 00:28 | CT ---
EXAMINATION TYPE: CT thoracic spine wo con DATE OF EXAM: 09/17/2020 COMPARISON: None HISTORY: fall syncope CT DLP: 2014.2 mGycm Automated exposure control for dose reduction was used. Images obtained from T1 to T12 without contrast. The thoracic vertebra have normal alignment. There is no significant compression deformity. There is minor spur formation of the endplates. There is no thoracic paraspinal mass. I see no sign of thoraci c spinal stenosis. There is no evidence of focal bone destruction. Posterior elements are intact. IMPRESSION: Mild multilevel spondylotic changes in the thoracic spine. No fracture seen.
[2020-09-17 00:39] LABS: Basophils % (A) 0 %; Eosinophils # (A) 0.1 k/uL (0-0.7); Eosinophils % (A) 1 %; HCT 45.4 % (34.0-46.0); HGB 14.1 gm/dL (11.4-16.0); Hypochromasia Slight; Lymphocytes # (A) 0.6 k/uL (1.0-4.8); Lymphocytes % (A) 6 %; MCH 25.7 pg (25.0-35.0); Mean Platelet Volume 7.9; Monocytes # (A) 0.4 k/uL (0-1.0); Monocytes % (A) 4 %; Neutrophils # (A) 9.4 k/uL (1.3-7.7); Neutrophils % (A) 88 %; Platelet Count 239 k/uL (150-450); RBC 5.47 m/uL (3.80-5.40); RDW 15.8 % (11.5-15.5); WBC 10.7 k/uL (3.8-10.6)
[2020-09-17 01:02] LABS: Prothrombin Time 10.3 sec (9.0-12.0)
[2020-09-17 01:06] LABS: Albumin 4.4 g/dL (3.5-5.0); Calcium 9.7 mg/dL (8.4-10.2); Magnesium 1.4 mg/dL (1.6-2.3); Potassium 4.7 mmol/L (3.5-5.1); Total Bilirubin 0.4 mg/dL (0.2-1.3); Total Protein 6.8 g/dL (6.3-8.2)
[2020-09-17] MEDS ORDERED: Magnesium Replacement Protocol 1 EACH MISC MISCELLANE PRN (01:10)
[2020-09-17] MEDS ORDERED: SODIUM CHLORIDE 0.9% 500 ML 500 ML IV STA (01:12)
[2020-09-17] MEDS: MAGNESIUM SULFATE-D5W PMX 1 GM in DEXTROSE/WATER 1 100ML.BAG IVPB SCH ×2 (02:12→03:18)
[2020-09-17 06:03] LABS: Glucose,Whole Blood 130 mg/dL (75-99)
[2020-09-17 08:40] LABS: Appearance,Urine Clear (Clear); Bilirubin,Urine Negative (Negative); Blood,Urine Moderate (Negative); Color,Urine Yellow; Glucose,Urine (UA) Negative (Negative); Hyaline Casts,Urine 1 /lpf (0-2); Ketones,Urine Negative (Negative); Leukocyte Esterase,Urine Negative (Negative); Mucus,Urine Rare /hpf; Nitrite,Urine Negative (Negative); Protein,Urine Negative (Negative); Specific Gravity,Urine 1.013 (1.001-1.035); Squamous Epithelial Cell,Urine 1 /hpf (0-4); Urobilinogen,Urine <2.0 mg/dL (<2.0); WBC,Urine 1 /hpf (0-5)
[2020-09-17 08:58] LABS: Calcium 9.4 mg/dL (8.4-10.2); Potassium 5.4 mmol/L (3.5-5.1)
--- NOTE | 2020-09-17 10:11 | P.CRDCN ---
History of Present Illness History of present illness: HISTORY OF PRESENTING ILLNESS This is a pleasant 70-year-old female past medical history significant for hypertension, dyslipidemia, diabetes mellitus and multiple sclerosis. She d oes not follow in the office with a armor reconnaissance vehicle driver. We have been asked to see in consultation for synocpe. She states yesterday she was having diarrhea all day. She was still tolerating food and water, however had persistent loose stools. In the evening she was sitting down at the kitchen table texting with a friend when she started feeling dizzy/light headed. She wanted to go sit in her recliner. U yasmany standing she passed out. She denies having had symptoms of chest pain, shortness of breath, palpitations, nausea, vomiting or diaphoresis. She thinks the episode was brief based on what she was watching on television. On arrival blood pressure was normotensive. She has had no further symptoms of syncope since arriving here. She has never passed out before. Orthostatics negative, however were checked after fluid hydration. DIAGNOSTICS EKG reveals sinus mechanism with first degree AV block and frequent PAC's. Telemetry tracings indicate SR with no arrhythmia or pauses. Chest xray negative for an acute process. CT head and spine negative with evidence of previous cervical spine fusion. Laboratory reviewed, WBC 10.7, hemoglobin 14.1, platelets 239, sodium 139, potassium 5.4, creatinine on admission 1. 1 repeat after hydration 1.04, magnesium 1.4, cardiac enzymes negative 3. Current cardiac medications include lisinopril 40 mg daily, aspirin 81 mg daily, diltiazem 120 mg daily, zetia 10 mg daily and pravastatin 40 mg daily. REVIEW OF SYSTEMS At the time of my exam: CONSTITUTIONAL: Denies fever or chills. CARDIOVASCULAR: Denies chest pain, shortness of breath, orthopnea, PND or palpitations. RESPIRATORY: Denies cough. GASTROINTESTINAL: Denies abdominal pain, diarrhea, constipation, nausea or vomiting. MUSCULOSKELETAL: Complains of back pain. NEUROLOGIC: Denies numbness, tingling, headacbe or weakness. ENDOCRINE: Denies fatigue, weight change, polydipsia or polyurina. GENITOURINARY: Denies burning, hematuria or urgency with micturation. HEMATOLOGIC: Denies history of anemia or bleeding. PHYSICAL EXAMINATION Blood pressure 125/63 heart rate 86 afebrile and maintaining oxygen saturation on room air. CONSTITUTIONAL: No apparent distress. HEENT: Head is normocephalic. Pupils are equal, round. Sclerae anicteric. Mucous membranes of the mouth are moist. No JVD. No carotid bruit. Abrasion under right eye. CHEST EXAMINATION: Lungs are clear to auscultation. No chest wall tenderness is noted on palpation or with deep breathing. HEART EXAMINATION: Irregular rate and rhythm. S1, S2 heard. Soft systolic ejection murmur at the base, no gallops or rub. ABDOMEN: Soft, nontender. Positive bowel sounds. EXTREMITIES: 2+ peripheral pulses, no lower extremity edema and no calf tenderness. NEUROLOGIC EXAMINATION: Patient is awake, alert and oriented x3. ASSESSMENT Syncope Diarrhea Acute kidney injury Hypomagnesemia Hypertension Dyslipidemia Diabetes mellitus PLAN Syncope likely related to acute dehydration secondary to diarrhea. Recommend checking an echocardiogram and increasing activity while on telemetry. Check lipid panel and repeat magnesium. Can be discharged home this afternoon if telemetry continues to remain unremarkable. Follow up with Dr. Elder in the office in 2-3 weeks and he will do further outpatient event monitoring. Thank you kindly for this consultation. Nurse Practitioner note has been reviewed, I agree with a documented findings and plan of care. Patient was seen and examined. Past Medical History Past Medical History: Diabetes Mellitus, GERD/Reflux, Hyperlipidemia, Hypertension, Osteoarthritis (OA), Thyroid Disorder Additional Past Medical History / Comment(s): MULTIPLE SCLEROSIS, GENITAL HERPES, ANEMIA, OCCASIONAL IRREGULAR HEART BEAT., HX OF DIABETES WITH INSULIN - NO RX NOW., USES WALKER AND W/C PRN. History of Any Multi-Drug Resistant Organisms: None Reported Past Surgical History: Back Surgery, Orthopedic Surgery Additional Past Surgical History / Comment(s): CARPAL TUNNEL, (2) SPINAL SURGERIES., EYELID SURGERY., NOSE SURGERY. Past Anesthesia/Blood Transfusion Reactions: No Reported Reaction, Motion Sickness Past Psychological History: No Psychological Hx Reported Smoking Status: Former smoker Past Alcohol Use History: Occasional Past Drug Use History: None Reported - Past Family History Mother Family Medical History: Cancer Additional Family Medical History / Comment(s): LEUKEMIA Brother(s) Family Medical History: Cancer Additional Family Medical History / Comment(s): BROTHER # 1 ESOPHAGEAL CANCER. BROTHER #2 PANCREATIC CANCER. BROTHER #3 STOMACH & ESOPHAGEAL CANCER Medications and Allergies Home Medications Medication Instructions Recorded Confirmed Type Acyclovir [Zovirax] 400 mg PO BID 03/20/18 09/17/20 History Aspirin [Adult Low Dose Aspirin EC] 81 mg PO DAILY 03/20/18 09/17/20 History Dimethyl Fumarate [Tecfidera] 240 mg PO BID 03/20/18 09/17/20 History Ezetimibe [Zetia] 10 mg PO HS 03/20/18 09/17/20 History Levothyroxine Sodium 25 mcg PO DAILY 03/20/18 09/17/20 History Omeprazole [PriLOSEC] 20 mg PO AC-BRKFST 03/20/18 09/17/20 History buPROPion HCL [Wellbutrin XL] 300 mg PO DAILY 03/20/18 09/17/20 History lisinopriL 40 mg PO HS 03/20/18 09/17/20 History Amitriptyline HCl 50 mg PO HS 09/17/20 09/17/20 History Baclofen [Lioresal] 10 mg PO BID PRN 09/17/20 09/17/20 History Diltiazem HCl [Diltiazem HCl 24Hr 120 mg PO DAILY 09/17/20 09/17/20 History ER] Dimethyl Fumarate [Tecfidera] 240 mg PO BID 09/17/20 09/17/20 History Ergocalciferol (Vitamin D2) 1,250 mcg PO Q7D 09/17/20 09/17/20 History [Vitamin D2 (50,000 Iu)] Ibuprofen [Motrin] 800 mg PO Q8H PRN 09/17/20 09/17/20 History Naproxen 500 mg PO BID 09/17/20 09/17/20 History Pioglitazone [Actos] 15 mg PO DAILY 09/17/20 09/17/20 History Pravastatin Sodium [Pravachol] 40 mg PO HS 09/17/20 09/17/20 History rOPINIRole HCL 3 mg PO HS 09/17/20 09/17/20 History rOPINIRole HCL [Requip] 2 mg PO HS 09/17/20 09/17/20 History Allergies Allergy/AdvReac Type Severity Reaction Status Date / Time No Known Allergies Allergy Verified 09/16/20 23:22 Physical Exam Vitals: Vital Signs Temp Pulse Pulse Resp BP BP BP 09/17/20 09:00 97.8 F 86 16 09/17/20 03:40 119/79 09/17/20 02:58 97.6 F 90 18 134/65 09/17/20 02:55 90 18 09/17/20 02:00 91 18 112/70 09/17/20 01:21 101 H 18 09/17/20 01:20 100 18 116/64 09/17/20 00:21 09/16/20 23:14 98.0 F 66 18 122/68 BP BP Pulse Ox 09/17/20 09:00 125/63 94 L 09/17/20 03:40 104/56 114/66 09/17/20 02:58 99 09/17/20 02:55 09/17/20 02:00 95 09/17/20 01:21 97 09/17/20 01:20 98 09/17/20 00:21 98 09/16/20 23:14 96 Intake and Output 09/16/20 09/17/20 09/17/20 22:59 06:59 14:59 Intake Total 200 Balance 200 Intake: Intake, IV Titration 200 Amount Magnesium Sulfate-D5w Pmx 200 1 gm In Dextrose/Water 1 100ml.bag @ 100 mls/hr IVPB Q1H [facility] Rx#: [id number] Other: Voiding Method Toilet # Voids 1 Weight 104 kg Results 09/17/20 00:06 09/17/20 06:37 Cardiac Enzymes 09/17/20 09/17/20 09/17/20 Range/Units 00:06 00:06 03:16 AST 37 H (14-36) U/L Troponin I <0.012 <0.012 (0.000-0.034) ng/mL 09/17/20 Range/Units 06:37 AST (14-36) U/L Troponin I <0.012 (0.000-0.034) ng/mL Coagulation 09/17/20 Range/Units 00:06 PT 10.3 (9.0-12.0) sec APTT 22.0 (22.0-30.0) sec CBC 09/17/20 Range/Units 00:06 WBC 10.7 H (3.8-10.6) k/uL RBC 5.47 H (3.80-5.40) m/uL Hgb 14.1 (11.4-16.0) gm/dL Hct 45.4 (34.0-46.0) % Plt Count 239 (150-450) k/uL Comprehensive Metabolic Panel 09/17/20 09/17/20 Range/Units 00:06 06:37 Sodium 136 L 139 (137-145) mmol/L Potassium 4.7 5.4 H (3.5-5.1) mmol/L Chloride 101 104 (98-107) mmol/L Carbon Dioxide 25 29 (22-30) mmol/L BUN 29 H 28 H (7-17) mg/dL Creatinine 1.10 H 1.04 (0.52-1.04) mg/dL Glucose 230 H 112 H (74-99) mg/dL Calcium 9.7 9.4 (8.4-10.2) mg/dL AST 37 H (14-36) U/L ALT 43 H (4-34) U/L Alkaline Phosphatase 113 (38-126) U/L Total Protein 6.8 (6.3-8.2) g/dL Albumin 4.4 (3.5-5.0) g/dL Current Medications Generic Name Dose Route Start Last Admin Trade Name Freq PRN Reason Stop Dose Admin Miscellaneous Information 1 each 09/17/20 01:10 Magnesium Replacement Protocol 1 Each Misc MISCELLANE DAILY PRN Per Protocol Protocol Intake and Output 09/16/20 09/17/20 09/17/20 22:59 06:59 14:59 Intake Total 200 Balance 200 Intake: Intake, IV Titration 200 Amount Magnesium Sulfate-D5w Pmx 200 1 gm In Dextrose/Water 1 100ml.bag @ 100 mls/hr IVPB Q1H [facility] Rx#: [id number] Other: Voiding Method Toilet # Voids 1 Weight 104 kg 09/17/20 00:06 09/17/20 06:37
[2020-09-17] MEDS ORDERED: BACLOFEN 10 MG TAB PO PRN (10:41)
[2020-09-17] MEDS ORDERED: PATIENT'S OWN (Dimethyl Fumarate [Tecfidera] 240 MG Capsule.Dr) PO SCH (10:45)
[2020-09-17] MEDS ORDERED: DIMETHYL FUMARATE 240 MG PO SCH (10:45)
[2020-09-17] MEDS ORDERED: DILTIAZEM CD 120 MG CAP.ER.24H PO SCH (10:45)
[2020-09-17] MEDS ORDERED: PIOGLITAZONE 15 MG TAB PO SCH (10:45)
[2020-09-17] MEDS ORDERED: ASPIRIN 81 MG PO SCH (10:45)
[2020-09-17] MEDS ORDERED: buPROPion XL 300 MG TAB.ER.24H PO SCH (10:45)
[2020-09-17 11:01] LABS: Magnesium 2.3 mg/dL (1.6-2.3)
[2020-09-17 11:43] LABS: Glucose,Whole Blood 102 mg/dL (75-99)
[2020-09-17 12:28] VITALS: BP 118/64; PULSE 89; RESP 18; TEMP 98.6
--- NOTE | 2020-09-17 12:41 | ECHOF ---
Referral Reason:syncope MEASUREMENTS -------- HEIGHT: 167.6 cm WEIGHT: 103.9 kg BP: 114/66 RVIDd: 2.2 cm (< 3.3) IVSd: 1.3 cm (0.6 - 1.1) LVIDd: 4.1 cm (3.9 - 5.3) LVPWd: 1.2 cm (0.6 - 1.1) IVSs: 1.7 cm LVIDs: 2.9 cm LVPWs: 1.6 cm LA Diam: 2.8 cm (2.7 - 3.8) Ao Diam: 3.2 cm (2.0 - 3.7) AV Cusp: 1.8 cm (1.5 - 2.6) MV EXCURSION: 16.269 mm (> 18.000) MV EF SLOPE: 81 mm/s (70 - 150) EPSS: 0.4 cm MV E Vinicio: 0.81 m/s MV DecT: 130 ms MV A Vinicio: 0.97 m/s MV E/A Ratio: 0.84 FINDINGS -------- Sinus rhythm. This was a technically adequate study. The left ventricular size is normal. There is mild concentric left ventricular hypertrophy. Overa ll left ventricular systolic function is normal with, an EF between 60 - 65 %. The right ventricle is normal in size. The left atrium is normal in size. The right atrium is normal in size. Interatrial and interventricular septum intact. The aortic valve is trileaflet, and appears structurally normal. No aortic stenosis or regurgitation. Mild mitral annular calcification present. The tricuspid valve appears structurally normal. The pulmonic valve was not well visualized. The aortic root size is normal. IVC Not well visulized. There is no pericardial effusion. CONCLUSIONS -------- 1. The left ventricular size is normal. 2. There is mild concentric left ventricular hypertrophy. 3. Overall left ventricular systolic function is normal with, an EF between 60 - 65 %. 4. The aortic valve is trileaflet, and appears structurally normal. No aortic stenosis or regurgitati on. 5. Mild mitral annular calcification present. 6. There is no pericardial effusion. [employer]SEM[employer]ER [employer]MENT FORM: Alycia Oh RD
--- NOTE | 2020-09-17 14:21 | P.HPIM ---
History of Present Illness H&P Date: 09/17/20 (This document was of both his H&P and discharge summary) 70 years old female patient of mine with past medical history of hypertension, dyslipidemia, type 2 diabetes, multiple sclerosis, gait instability, chronic back pain presents in with an episode of syncope. According to the patient she had multiple episodes of diarrhea yesterday she was weak she was sitting at the kitchen table and stood up to her recliner and realized that she passed out. She denies any other symptoms of palpitations and shortness of breath chest pain or nausea and vomiting. The episode was brief and patient did not have any recurrence of symptoms. Diarrhea has improved. Orthostatics are negative. Patient was seen by cardiology who recommended an echocardiogram and follow-up as outpatient. Review of Systems Constitutional: Denies chills, Denies fever, endorses weakness, Denies weight loss Eyes: denies decreased vision, denies diplopia, denies discharge, denies pain Ears: deny: decreased hearing Ears, nose, mouth and throat: Denies dental pain, Denies headache, Denies nasal discharge, Denies nose pain Cardiovascular: Denies chest pain, Denies decreased exercise tolerance, Denies edema, Denies high blood pressure, Denies irregular heart beat, Denies palpitations, Denies paroxysmal nocturnal dyspnea, Denies rapid heart beat, Denies shortness of breath Respiratory: Denies congestion, Denies cough, Denies cough with sputum, Denies dyspnea, Denies home oxygen, Denies wheezing Gastrointestinal: Denies abdominal pain, endorses change in bowel habit Denies coffee ground emesis, Denies early satiety, Denies excessive gas, Denies heartburn, Denies hematemesis, Denies hematochezia, Denies loss of appetite, Denies nausea, Denies vomiting Genitourinary: Denies dysuria, Denies flank pain, Denies kidney stones, Denies menorrhagia, Denies urgency, Denies urinary frequency Musculoskeletal: Denies gait dysfunction, Denies limitation of motion, Denies morning stiffness, Denies muscle cramps Integumentary: Denies rash, Denies wounds, Denies brittle nails, Denies change in hair/nails, Denies darkening of skin Neurological: Denies balance difficulties, Denies change in speech, Denies double vision, Denies gait dysfunction, Denies loss of vision, Denies motor disturbance, Denies numbness, Denies paralysis, Denies paresthesias, Denies seizures Psychiatric: Denies anxiety, Denies depression Endocrine: Denies excessive sweating, Denies excessive thirst, Denies high blood sugars, Denies palpitations Hematologic/Lymphatic: Denies easy bruising, Denies lymphadenopathy Past Medical History Past Medical History: Diabetes Mellitus, GERD/Reflux, Hyperlipidemia, Hypertension, Osteoarthritis (OA), Thyroid Disorder Additional Past Medical History / Comment(s): MULTIPLE SCLEROSIS, GENITAL HERPES, ANEMIA, OCCASIONAL IRREGULAR HEART BEAT., HX OF DIABETES WITH INSULIN - NO RX NOW., USES WALKER AND W/C PRN. History of Any Multi-Drug Resistant Organisms: None Reported Past Surgical History: Back Surgery, Orthopedic Surgery Additional Past Surgical History / Comment(s): CARPAL TUNNEL, (2) SPINAL SURGERIES., EYELID SURGERY., NOSE SURGERY. Past Anesthesia/Blood Transfusion Reactions: No Reported Reaction, Motion Sickness Past Psychological History: No Psychological Hx Reported Smoking Status: Former smoker Past Alcohol Use History: Occasional Past Drug Use History: None Reported - Past Family History Mother Family Medical History: Cancer Additional Family Medical History / Comment(s): LEUKEMIA Brother(s) Family Medical History: Cancer Additional Family Medical History / Comment(s): BROTHER # 1 ESOPHAGEAL CANCER. BROTHER #2 PANCREATIC CANCER. BROTHER #3 STOMACH & ESOPHAGEAL CANCER Medications and Allergies Home Medications Medication Instructions Recorded Confirmed Type Acyclovir [Zovirax] 400 mg PO BID 03/20/18 09/17/20 History Aspirin [Adult Low Dose Aspirin EC] 81 mg PO DAILY 03/20/18 09/17/20 History Dimethyl Fumarate [Tecfidera] 240 mg PO BID 03/20/18 09/17/20 History Ezetimibe [Zetia] 10 mg PO HS 03/20/18 09/17/20 History Levothyroxine Sodium 25 mcg PO DAILY 03/20/18 09/17/20 History Omeprazole [PriLOSEC] 20 mg PO AC-BRKFST 03/20/18 09/17/20 History buPROPion HCL [Wellbutrin XL] 300 mg PO DAILY 03/20/18 09/17/20 History lisinopriL 40 mg PO HS 03/20/18 09/17/20 History Amitriptyline HCl 50 mg PO HS 09/17/20 09/17/20 History Baclofen [Lioresal] 10 mg PO BID PRN 09/17/20 09/17/20 History Diltiazem HCl [Diltiazem HCl 24Hr 120 mg PO DAILY 09/17/20 09/17/20 History ER] Ergocalciferol (Vitamin D2) 1,250 mcg PO Q7D 09/17/20 09/17/20 History [Vitamin D2 (50,000 Iu)] Ibuprofen [Motrin] 800 mg PO Q8H PRN 09/17/20 09/17/20 History Naproxen 500 mg PO BID 09/17/20 09/17/20 History Pioglitazone [Actos] 15 mg PO DAILY 09/17/20 09/17/20 History Pravastatin Sodium [Pravachol] 40 mg PO HS 09/17/20 09/17/20 History rOPINIRole HCL 3 mg PO HS 09/17/20 09/17/20 History rOPINIRole HCL [Requip] 2 mg PO HS 09/17/20 09/17/20 History Allergies Allergy/AdvReac Type Severity Reaction Status Date / Time No Known Allergies Allergy Verified 09/16/20 23:22 Physical Exam Vitals: Vital Signs Temp Pulse Pulse Resp BP BP BP 09/17/20 09:00 97.8 F 86 16 09/17/20 03:40 119/79 09/17/20 02:58 97.6 F 90 18 134/65 09/17/20 02:55 90 18 09/17/20 02:00 91 18 112/70 09/17/20 01:21 101 H 18 09/17/20 01:20 100 18 116/64 09/17/20 00:21 09/16/20 23:14 98.0 F 66 18 122/68 BP BP Pulse Ox 09/17/20 09:00 125/63 94 L 09/17/20 03:40 104/56 114/66 09/17/20 02:58 99 09/17/20 02:55 09/17/20 02:00 95 09/17/20 01:21 97 09/17/20 01:20 98 09/17/20 00:21 98 09/16/20 23:14 96 Intake and Output 09/16/20 09/17/20 09/17/20 22:59 06:59 14:59 Intake Total 200 Balance 200 Intake: Intake, IV Titration 200 Amount Magnesium Sulfate-D5w Pmx 200 1 gm In Dextrose/Water 1 100ml.bag @ 100 mls/hr IVPB Q1H [facility] Rx#: [id number] Other: Voiding Method Toilet # Voids 1 Weight 104 kg - Constitutional General appearance: cooperative, no acute distress, obese scrape on the cheek Eyes: anicteric sclerae, PERRLA, normal appearance ENT: hearing grossly normal - Neck Neck: no lymphadenopathy, normal ROM, no other, no rigidity, no stridor, no thyromegaly - Respiratory Respiratory: bilateral: CTA, negative: diminished, dullness, rales, rhonchi - Cardiovascular Rhythm: regular Heart sounds: normal: S1, S2 Abnormal Heart Sounds: no systolic murmur, no diastolic murmur, no rub, no S3 Gallop, no S4 Gallop, no click, no other - Gastrointestinal General gastrointestinal: normal bowel sounds, soft - Integumentary Integumentary: Scrape on the cheek - Neurologic Neurologic: CNII-XII intact - Musculoskeletal Musculoskeletal: Ataxic gait, strength equal bilaterally - Psychiatric Psychiatric: A&O x's 3, appropriate affect Results CBC & Chem 7: 09/17/20 00:06 09/17/20 06:37 Labs: Abnormal Lab Results - Last 24 Hours (Table) 09/17/20 09/17/20 09/17/20 Range/Units 00:06 00:06 06:01 WBC 10.7 H (3.8-10.6) k/uL RBC 5.47 H (3.80-5.40) m/uL RDW 15.8 H (11.5-15.5) % Neutrophils # 9.4 H (1.3-7.7) k/uL Lymphocytes # 0.6 L (1.0-4.8) k/uL Sodium 136 L (137-145) mmol/L Potassium (3.5-5.1) mmol/L BUN 29 H (7-17) mg/dL Creatinine 1.10 H (0.52-1.04) mg/dL Glucose 230 H (74-99) mg/dL POC Glucose (mg/dL) 130 H (75-99) mg/dL Magnesium 1.4 L (1.6-2.3) mg/dL AST 37 H (14-36) U/L ALT 43 H (4-34) U/L Urine Blood (Negative) Urine Mucus (None) /hpf 09/17/20 09/17/20 Range/Units 06:37 07:57 WBC (3.8-10.6) k/uL RBC (3.80-5.40) m/uL RDW (11.5-15.5) % Neutrophils # (1.3-7.7) k/uL Lymphocytes # (1.0-4.8) k/uL Sodium (137-145) mmol/L Potassium 5.4 H (3.5-5.1) mmol/L BUN 28 H (7-17) mg/dL Creatinine (0.52-1.04) mg/dL Glucose 112 H (74-99) mg/dL POC Glucose (mg/dL) (75-99) mg/dL Magnesium (1.6-2.3) mg/dL AST (14-36) U/L ALT (4-34) U/L Urine Blood Moderate H (Negative) Urine Mucus Rare H (None) /hpf Thrombosis Risk Factor Assmnt - DVT/VTE Prophylaxis DVT/VTE Prophylaxis: Mechanical Prophylaxis ordered - Choose All That Apply Any of the Below Risk Factors Present?: No Other Risk Factors: Yes Each Risk Factor Represents 2 Points: Age 61-74 years Other congenital or acquired thrombophilia - If yes, enter type in comment: No Thrombosis Risk Factor Assessment Total Risk Factor Score: 2 Thrombosis Risk Factor Assessment Level: Low Risk Assessment and Plan Plan: #1 syncope likely vasovagal. Cardiology evaluated the patient ruled out cardiogenic syncope. Echocardiogram ordered- mild concentric left than the hypertrophy EF 60-65% Follow up as outpatient #2 diarrhea resolved #3 hypertension continue Cardizem 120 mg by mouth daily and lisinopril 40 mg by mouth daily #4 hypothyroidism continue levothyroxine 25 g daily #6 restless leg on Requip 3 mg and 2 mg at bedtime will switch to only 3 mg at bedtime. Follow up as outpatient #7 hyperlipidemia continue pravastatin 40 mg daily at bedtime #8 GERD on Prilosec 20 mg at breakfast #9 acute kidney injury sec to diarrhea status post fluid resuscitation repeat CMP as outpatient #10 history of MS on Tecfidera follows Dr. Shuayto as outpatient #11 type 2 diabetes controlled #12 hyperkalemia secondary to dehydration follow with repeat CMP in a week #13 CODE STATUS full code #14 disposition patient to be discharged today
[2020-09-17] MEDS ORDERED: lisinopriL 20 MG TAB PO SCH (21:00)
[2020-09-17] MEDS ORDERED: EZETIMIBE 10 MG TAB PO SCH (21:00)
[2020-09-17] MEDS ORDERED: ACYCLOVIR 200 MG CAP PO SCH (21:00)
[2020-09-17] MEDS ORDERED: AMITRIPTYLINE HCL 50 MG TAB PO SCH (21:00)
[2020-09-17] MEDS ORDERED: PRAVASTATIN SODIUM 40 MG TAB PO SCH (21:00)
[2020-09-17] MEDS ORDERED: NAPROXEN 250 MG TAB PO SCH (21:00)
[2020-09-18] MEDS ORDERED: LEVOTHYROXINE 25 MCG TAB PO SCH (06:30)
[2020-09-18] MEDS ORDERED: PANTOPRAZOLE 40 MG TABLET PO SCH (07:30)
[2020-09-20] MEDS ORDERED: ERGOCALCIFEROL 1,250 MCG (50,000 IU) CAPSULE PO SCH (09:00)
== END 2020-09-17 16:11 | disposition home or self-care (01) | DRG 312 ==
LOC: EC 22:51 → 3SCARD 09-17 01:21
PROVIDERS: ADMIT Internal Medicine; ATTEND Internal Medicine
DX: R55 Syncope and collapse (principal); N17.9 Acute kidney failure, unspecified; E03.9 Hypothyroidism, unspecified; Z20.822 Contact with and (suspected) exposure to COVID-19; E11.9 Type 2 diabetes mellitus without complications; E78.5 Hyperlipidemia, unspecified; E83.42 Hypomagnesemia; E86.0 Dehydration; E87.5 Hyperkalemia; G25.81 Restless legs syndrome; G35 Multiple sclerosis; I10 Essential (primary) hypertension; I44.0 Atrioventricular block, first degree; G89.29 Other chronic pain; M54.9 Dorsalgia, unspecified; I49.1 Atrial premature depolarization; K21.9 Gastro-esophageal reflux disease without esophagitis; R26.9 Unspecified abnormalities of gait and mobility; M19.90 Unspecified osteoarthritis, unspecified site; Z79.82 Long term (current) use of aspirin; Z79.890 Hormone replacement therapy; Z79.899 Other long term (current) drug therapy; Z80.0 Family history of malignant neoplasm of digestive organs; Z80.6 Family history of leukemia; Z87.891 Personal history of nicotine dependence
CPT/HCPCS: 36415; 70450; 71045; 72125; 72128; 80048; 80053; 80061; 81001; 83735; 84484; 85025; 85610; 85730; 87635; 90471; 90715; 93005; 93306; 96374; 99285

== ENCOUNTER → 2020-10-28 | Outpatient (CLI) | payer MEDICARE, OTHER ==
--- NOTE | 2020-10-28 11:06 | MM ---
Reason for exam: screening (asymptomatic). Last mammogram was performed 1 year ago. History: Patient is postmenopausal and has history of other cancer at age 70. Cyst aspiration of the right breast. Physical Findings: A clinical breast exam by your physician is recommended on an annual basis and results should be correlated with mammographic findings. MG 3D Screening Mammo W/Cad Bilateral CC and MLO view(s) were taken. Prior study comparison: October 14, 2019, bilateral MG 3d screening mammo w/cad. December 17, 2018, right breast MG 3d diag mammo w/cad RT. March 26, 2018, bilateral MG 3d screening mammo w/cad. There are scattered fibroglandular densities. ASSESSMENT: Negative, BI-RAD 1 RECOMMENDATION: Routine screening mammogram of both breasts in 1 year.
== END | disposition home or self-care (01) ==
LOC: RADMAMWWP 08:32
PROVIDERS: ATTEND Internal Medicine
DX: Z12.31 Encounter for screening mammogram for malignant neoplasm of breast (principal); Z78.0 Asymptomatic menopausal state
CPT/HCPCS: 77063; 77067

== ENCOUNTER → 2020-12-01 | Outpatient (CLI) | payer MEDICARE, OTHER ==
[2020-12-01 11:00] LABS: HCT 38.2 % (34.0-46.0); HGB 12.3 gm/dL (11.4-16.0); MCH 27.1 pg (25.0-35.0); MCHC 32.2 g/dL (31.0-37.0); Mean Platelet Volume 8.4; Platelet Count 182 k/uL (150-450); RBC 4.55 m/uL (3.80-5.40); RDW 14.7 % (11.5-15.5); WBC 3.8 k/uL (3.8-10.6)
== END | disposition home or self-care (01) ==
LOC: LABPAT 10:08
PROVIDERS: ATTEND Internal Medicine Clinical Cardiac Electrophysiology
DX: Z01.812 Encounter for preprocedural laboratory examination (principal); I48.92 Unspecified atrial flutter
CPT/HCPCS: 36415; 80051; 82565; 84520; 85027

== ENCOUNTER 2020-12-17 06:06 | Day surgery (SDC) | payer MEDICARE, OTHER ==
[2020-12-15 14:20] VITALS: BMI 37.1
[~2020-12-17 06:06] MED LIST changes: -LIDOCAINE 1% 20 ML VIAL (10MG/ML) FOR IV START INTRADERMA PRN; +SODIUM CHLORIDE 0.9% 1,000 ML IV SCH
[2020-12-17] MEDS ORDERED: LIDOCAINE 1% INJ 10MG/ML (20 ML MDV) ONE ×2 (07:31→07:32)
[2020-12-17] MEDS ORDERED: PROTAMINE SULFATE 10 MG/ML 5 ML VIAL IV ONE (07:31)
[2020-12-17] MEDS ORDERED: NEOSTIGMINE 1 MG/ML 10 ML VIAL ONE (07:31)
[2020-12-17] MEDS ORDERED: ePHEDrine SULFATE/0.9% NACL/PF 50 MG/5 ML SYRINGE IV ONE (07:31)
[2020-12-17] MEDS ORDERED: fentaNYL (PF) 50 MCG/ML 2 ML AMP ONE (07:31)
[2020-12-17] MEDS ORDERED: PHENYLEPHRINE-0.9% NACL SYG 1,000 MCG/10 ML SYRINGE ONE (07:31)
[2020-12-17] MEDS ORDERED: PROPOFOL 10 MG/ML 20 ML VIAL IV ONE (07:31)
[2020-12-17] MEDS ORDERED: FUROSEMIDE 10 MG/ML 2 ML VIAL ONE (07:31)
[2020-12-17] MEDS ORDERED: GLYCOPYRROLATE 0.2 MG/ML 2 ML VIAL ONE (07:31)
[2020-12-17] MEDS ORDERED: HEPARIN SODIUM,PORCINE 10,000 UNIT/ML 1 ML VIAL ONE (07:31)
[2020-12-17] MEDS ORDERED: MIDAZOLAM 2 MG/2 ML VIAL ONE (07:31)
[2020-12-17] MEDS ORDERED: ROCURONIUM 10 MG/ML (5 ML VIAL) IV ONE (07:31)
[2020-12-17] MEDS ORDERED: ALBUTEROL HFA INHALER INHALATION ONE (07:31)
[2020-12-17] MEDS ORDERED: HEPARIN SOD,PORK IN 0.45% NACL 25,000 UNIT in 0.45% NACL 1 250ML.BAG IV ONE (08:25)
[2020-12-17] MEDS ORDERED: LIDOCAINE 1% INJ 10MG/ML (20 ML MDV) SQ ONE (08:28)
[2020-12-17] MEDS ORDERED: IOPAMIDOL-370 100ML BTL INJ ONE (09:57)
[2020-12-17] MEDS ORDERED: HEPARIN SODIUM (1,000 UNIT/ML) 1,000 UNIT in SODIUM CHLORIDE 0.9% 1,000 ML IRRIGATION ONE (09:58)
[2020-12-17 10:48] LABS: Glucose,Whole Blood 177 mg/dL (75-99)
[2020-12-17] MEDS ORDERED: SODIUM CHLORIDE 0.9% 1,000 ML IV ONE (10:54)
[2020-12-17] MEDS ORDERED: ACETAMINOPHEN TAB 325 MG TAB PO PRN (11:11)
[2020-12-17] MEDS ORDERED: ACETAMINOPHEN IV (For NPO) 1,000 MG in EMPTY BAG 1 BAG IVPB ONE (11:11)
--- NOTE | 2020-12-17 11:42 | P.EPPROC ---
- EP Procedure Note Electrophysiology Procedure Note: PROCEDURE A. fib ablation, paroxysmal Typical atrial flutter ablation DIAGNOSIS Atrial fibrillation, symptomatic, refractory to therapy Paroxysmal Recurrent typical atrial flutter RESULT No left atrial appendage mass seen on intracardiac echo Successful A. fib ablation/pulmonary vein isolation of all veins using cryo- ablation Complete entrance block in all 4 veins confirmed No evidence for phrenic nerve injury Successful typical atrial flutter ablation Patient came in sinus rhythm and wasn't first-degree AV block, MN interval 277 ms on diltiazem 120 mg by mouth daily Esophageal deflection YES PROCEDURE DETAILS Patient was brought to the EP lab in a fasting state. Written informed consent was obtained prior to the procedure. Procedure performed under general anesthesia After initial muscle relaxant use, muscle relaxants were not given thereafter in order to assess phrenic nerve during procedure. Patient prepped and draped as per protocol Full cryo-set up with standard preparation of the cryoablation tools done. Femoral Venous access obtained on the right and left groins Venous and arterial Sheaths placed. Diagnostic catheters for the high right atrium, phrenic nerve stimulation and pacing, His bundle, RV and coronary sinus placed Intracardiac echo catheter placed. Long sheath placed in the right atrium Left and right transseptal catheterization performed under intracardiac echo guidance. Intravenous heparin with aCT above 300 Later, catheter positioning and balloon positioning in the left atrium, under intracardiac echo guidance Diagnostic EP study with Coronary sinus pacing and recording Baseline measurements Sinus cycle length 930 milliseconds, MN interval 277 ms, QRS 160 ms and QT 430 ms AH 113, HV 86 Atrial pacing performed from the high right atrium and the coronary sinus Sinus node recovery times at 684 ms AV node Wenckebach block 460 ms Transseptal catheterization performed RA pressure 18/8/14 LA pressure 20/9/40 Transseptal catheterization performed with standard sheath. The cryoablation sheath was then placed with an over the wire exchange without any acute complications. All 4 pulmonary veins were isolated in the following sequence: Left superior followed by left inferior followed by right superior followed by right inferior The cryo-ablation balloon was placed at the os of each vein 1.5 mL of IV dye was injected to confirm an occluded vein Goal during cryoablation was to achieve complete occlusion of the pulmonary vein , achieve -30 degrees C at 30 seconds and achieve -40 degrees C at 60 seconds and a time to effect of less than 60-90 seconds, . If not the balloon was repositioned to obtain this result After completion of Cryoblation with durations from 180-240 seconds, entrance block was confirmed with the Attain circular catheter in a roving fashion around the antrum of the pulmonary veins Phrenic nerve pacing was performed from the SVC, right innominate vein area and diaphragm voltage was monitored. Diaphragmatic contractions were also monitored manually for strength of contraction. Parameter goals for each cryo freeze Complete occlusion of the appropriate vein -30 degrees C by 30 seconds -40 degrees C by 60 seconds Minimum between minus 40-55 degrees C Thaw time greater than 10 seconds Balloon visualized by intracardiac echo The esophagus was intubated. Esophageal Temperature monitoring with a CIRCA catheter formed. Esophageal deflection for hypothermia of the esophagus below 30 degrees C Left superior pulmonary vein Complete isolation, entrance block Left inferior pulmonary vein Complete isolation, entrance block Right superior pulmonary vein, during phrenic nerve pacing Complete isolation, entrance block Right inferior pulmonary vein, during phrenic nerve pacing Complete isolation, entrance block At the end of the procedure the Achieve catheter was once again used to check for entrance block Phrenic nerve stimulation was performed to confirm diaphragmatic stimulation the end of the procedure Cine fluoroscopy was performed at the very end of the procedure to confirm move ment of both diaphragms with inspiration and expiration The RF ablation catheter was placed in the right atrium over a long sheath after withdrawing the cryo sheath Intracardiac echo for 3-D mapping of the isthmus Isthmus was short and shaped like a saucer RF ablation was performed with the tract technique and reversed tract technique Complete line of block was made Differential pacing programmed bidirectional block At the end of the procedure the patient was extubated Heparin was reversed Venous sheaths were removed and hemostasis assured with vascade PROCEDURES PERFORMED Diagnostic EP study CS pacing and recording Left and right transseptal catheterization 3D mapping) Intracardiac echocardiography Pulmonary vein isolation with transseptal and comprehensive EPS, [id number] Urinary ablation for typical atrial flutter, cavo tricuspid isthmus
--- NOTE | 2020-12-17 11:45 | P.PRLE ---
RE: Blanca Stringer Dear Christie Lis underwent cryoablation of the pulmonary veins for paroxysmal atrial fibrillation followed by typical atrial flutter ablation She tolerated the procedure well without any acute complications At baseline in sinus rhythm the PA interval is prolonged at 277 ms I would recommend stopping diltiazem completely for now She must continue antiplatelet ablation lifelong Thank you for entrusting me with the care of the patient Warm regards Sincerely Javier Elder
[2020-12-17] MEDS: ACYCLOVIR 200 MG CAP PO SCH (20:01)
[2020-12-17] MEDS: DIMETHYL FUMARATE 240 MG PO SCH (20:02)
[2020-12-17] MEDS ORDERED: lisinopriL 20 MG TAB PO SCH (21:00)
[2020-12-18 02:33] VITALS: PULSE 93; RESP 16
[2020-12-18] MEDS ORDERED: LEVOTHYROXINE 25 MCG TAB PO SCH (06:30)
[2020-12-18] MEDS ORDERED: PANTOPRAZOLE 40 MG TABLET PO SCH (07:30)
[2020-12-18] MEDS: DIMETHYL FUMARATE 240 MG PO SCH (07:37)
[2020-12-18] MEDS: ACYCLOVIR 200 MG CAP PO SCH (07:37)
[2020-12-18 08:46] VITALS: BP 95/58; TEMP 98.5
[2020-12-18] MEDS ORDERED: RIVAROXABAN 20 MG TAB PO SCH (09:00)
--- NOTE | 2020-12-18 19:51 | DS ---
DISCHARGE SUMMARY Mrs. Stringer underwent atrial fibrillation ablation yesterday and she is doing well today. She has mild discomfort in the chest with taking a deep breath, but her lungs are clear. Heart sounds are normal. Her sore throat is better. Her groins have healed well. There is bruising in the groin, but there is no hematoma. The Vascade venous plug was used for all punctures in her groins and there is no swelling or hematoma at all. Her blood pressure is low this morning. Otherwise, her blood pressure has been normal. I did stop diltiazem but continued all other medications. IMPRESSION: 1. Paroxysmal atrial fibrillation. 2. First-degree AV block. 3. Status post atrial fibrillation ablation. PLAN: Discontinue diltiazem. Continue all other medications. Patient may take aspirin. Incentive spirometer. Ambulate in the hallways and discharge home if she is stable in the next few hours. She will follow up in the office in a week's time. MMODL / IJN: [id number] /
== END 2020-12-18 09:58 | disposition home or self-care (01) ==
LOC: CATHEP 06:06 → 6NMEDSUR 11:21 → CATHEP 12-18 09:58
PROVIDERS: ATTEND Internal Medicine Clinical Cardiac Electrophysiology
DX: I48.0 Paroxysmal atrial fibrillation (principal)
CPT/HCPCS: 93662; 93613; 93653; 93657; C1894 ×2; C1769 ×4; C1760; C1766 ×2; C1730 ×2; C1759; C1893; C1733; C1732; J2250; J2720; J1644 ×3; J1940; J2710; J2001; J3010; J0131; J2370; J2704; Q9967

== ENCOUNTER 2021-01-02 12:30 | Emergency (ER) | payer MEDICARE, OTHER ==
[2021-01-02 12:38] VITALS: RESP 18; TEMP 98
--- NOTE | 2021-01-02 12:59 | ED ---
General Adult HPI - General Chief complaint: Extremity Problem,Nontraumatic Stated complaint: PostOp/Lt Leg Pain Time Seen by Provider: 01/02/21 12:41 Source: patient, RN notes reviewed Mode of arrival: ambulatory Limitations: no limitations - History of Present Illness Initial comments: Patient is a pleasant 70-year-old female presenting to the emergency Department with right posterior thigh discomfort. Onset of symptoms was for 5 days ago. Patient did have ablation right inguinal region 16 days ago. Patient denies any discomfort in the inguinal region. No calf pain. No chest pain or dyspnea. Patient has noticed bruising. No erythema. - Related Data Home Medications Medication Instructions Recorded Confirmed Acyclovir [Zovirax] 400 mg PO BID 03/20/18 12/15/20 Dimethyl Fumarate [Tecfidera] 240 mg PO BID 03/20/18 12/17/20 Levothyroxine Sodium 25 mcg PO DAILY 03/20/18 12/17/20 Omeprazole [PriLOSEC] 20 mg PO AC-BRKFST 03/20/18 12/17/20 lisinopriL 40 mg PO HS 03/20/18 12/17/20 Ergocalciferol (Vitamin D2) 1,250 mcg PO Q7D 09/17/20 12/17/20 [Vitamin D2 (50,000 Iu)] Ibuprofen [Motrin] 800 mg PO Q8H PRN 09/17/20 12/17/20 rOPINIRole HCL 3 mg PO HS 09/17/20 12/17/20 Rivaroxaban [Xarelto] 20 mg PO DAILY 12/15/20 12/17/20 Allergies Allergy/AdvReac Type Severity Reaction Status Date / Time No Known Allergies Allergy Verified 01/02/21 12:35 Review of Systems ROS Statement: Those systems with pertinent positive or pertinent negative responses have been documented in the HPI. ROS Other: All systems not noted in ROS Statement are negative. Constitutional: Denies: fever Eyes: Denies: eye pain ENT: Denies: ear pain Respiratory: Denies: cough Cardiovascular: Denies: chest pain Endocrine: Denies: fatigue Gastrointestinal: Denies: abdominal pain Genitourinary: Denies: dysuria Musculoskeletal: Denies: back pain Skin: Reports: as per HPI Neurological: Denies: weakness Past Medical History Past Medical History: Diabetes Mellitus, GERD/Reflux, Hyperlipidemia, Hypertension, Osteoarthritis (OA), Thyroid Disorder Additional Past Medical History / Comment(s): MULTIPLE SCLEROSIS, GENITAL HERPES, ANEMIA, OCCASIONAL IRREGULAR HEART BEAT., HX OF DIABETES WITH INSULIN - NO RX NOW., USES WALKER AND W/C PRN. History of Any Multi-Drug Resistant Organisms: None Reported Past Surgical History: Back Surgery, Cardiac Ablation, Orthopedic Surgery Additional Past Surgical History / Comment(s): CARPAL TUNNEL, (2) SPINAL SURGERIES., EYELID SURGERY., NOSE SURGERY. Past Anesthesia/Blood Transfusion Reactions: No Reported Reaction, Motion Sickness Past Psychological History: No Psychological Hx Reported Smoking Status: Former smoker - Past Family History Mother Family Medical History: Cancer Additional Family Medical History / Comment(s): LEUKEMIA Brother(s) Family Medical History: Cancer Additional Family Medical History / Comment(s): BROTHER # 1 ESOPHAGEAL CANCER. BROTHER #2 PANCREATIC CANCER. BROTHER #3 STOMACH & ESOPHAGEAL CANCER General Exam Limitations: no limitations General appearance: alert, in no apparent distress Head exam: Present: normocephalic Eye exam: Present: normal appearance Neck exam: Present: normal inspection Respiratory exam: Present: normal lung sounds bilaterally Cardiovascular Exam: Present: regular rate, normal rhythm Expanded Peripheral pulses: 2+: Femoral (R), Dorsalis Pedis (R) GI/Abdominal exam: Present: soft. Absent: tenderness External exam: Present: other (No swelling or tenderness or discoloration in the inguinal region. Femoral pulse intact.) Extremities exam: Present: other (Right posterior lower thigh with ecchymosis and mild tenderness). Absent: calf tenderness Neurological exam: Present: alert Psychiatric exam: Present: normal affect, normal mood Skin exam: Present: other (Ecchymosis right posterior lower thigh) Course Vital Signs 01/02/21 12:35 Temperature 98 F Pulse Rate 78 Respiratory 18 Rate Blood Pressure 152/72 O2 Sat by Pulse 95 Oximetry Medical Decision Making - Medical Decision Making Case was earlier discussed with Dr. Moon who stated if no evidence of pseudoaneurysm to call the office Monday for follow-up. Patient reevaluated and updated. - Radiology Data Radiology results: report reviewed (Ultrasounds show small hematoma. No evidence of DVT or pseudoaneurysm.) Disposition Clinical Impression: Hematoma Disposition: HOME SELF-CARE Condition: Stable Instructions (If sedation given, give patient instructions): Hematoma (ED) Additional Instructions: Please follow-up with cardiology, call Monday. Please also follow-up to primary care physician in the next day or 2 for recheck. If desired you can try wrapping the area with Anderson wrap or use ice. Return for increased pain, swelling, worsening or changing symptoms or other concerns. Is patient prescribed a controlled substance at d/c from ED?: No Referrals: Lila Aldana MD [Primary Care Provider] - 1-2 days Regan Grubbs MD [STAFF PHYSICIAN] - 1-2 days Time of Disposition: 16:14
--- NOTE | 2021-01-02 14:15 | US ---
EXAMINATION TYPE: US venous doppler duplex LE RT DATE OF EXAM: 01/02/2021 2:01 PM COMPARISON: NONE CLINICAL HISTORY: pain. Right leg pain, patient on blood thinners SIDE PERFORMED: Right TECHNIQUE: The lower extremity deep venous system is examined utilizing real time linear array sonog francis with graded compression, doppler sonography and color-flow sonography. VESSELS IMAGED: Common Femoral Vein Deep Femoral Vein Greater Saphenous Vein * Femoral Vein Popliteal Vein Small Saphenous Vein * Proximal Calf Veins (* superficial vessels) Right Leg: Appears negative for DVT Right groin: 6.4 x 1.4 x 3.5cm complex fluid collection IMPRESSION: No evidence of deep vein thrombosis in the right leg. Right groin fluid collection is non specific.
--- NOTE | 2021-01-02 16:06 | US ---
EXAMINATION TYPE: US lower ext pseudo artery RT DATE OF EXAM: 01/02/2021 COMPARISON: NONE CLINICAL HISTORY: swelling. Cardiac ablation 2 weeks ago, no groin pain, swelling or bruising EXAM PERFORMED: Grayscale and color Doppler duplex imaging performed of the groin, post cardiac berny ter to assess for pseudoaneurysm. SIDE PERFORMED: Right Color and Waveform Doppler performed to assess for the presence of pseudoaneurysm; Is there ultrasound evidence of a pseudoaneurysm: no Is there evidence of AV shunting: no Is there a fluid collection present: yes: 6.4 x 1.4 x 3.5cm complex fluid collection IMPRESSION: There is oval-shaped complex fluid in the right groin consistent with small hematoma. No evidence of pseudoaneurysm.
[2021-01-02 16:23] VITALS: BP 150/80; PULSE 74
== END 2021-01-02 16:23 | disposition home or self-care (01) ==
LOC: EC 12:30
DX: S70.11XA Contusion of right thigh, initial encounter (principal); E11.9 Type 2 diabetes mellitus without complications; I10 Essential (primary) hypertension; E78.5 Hyperlipidemia, unspecified; K21.9 Gastro-esophageal reflux disease without esophagitis; M19.90 Unspecified osteoarthritis, unspecified site; Z79.01 Long term (current) use of anticoagulants; Z79.1 Long term (current) use of non-steroidal anti-inflammatories (NSAID); Z79.4 Long term (current) use of insulin; Z79.890 Hormone replacement therapy; Z79.899 Other long term (current) drug therapy; Z87.891 Personal history of nicotine dependence; X58.XXXA Exposure to other specified factors, initial encounter
CPT/HCPCS: 93975; 99283

== ENCOUNTER → 2021-02-18 | Outpatient (CLI) | payer MEDICARE, OTHER ==
[2021-02-18 17:09] LABS: Basophils # (A) 0.04 X 10*3/uL (0.00-0.10); Eosinophils # (A) 0.12 X 10*3/uL (0.04-0.35); Eosinophils % (A) 2.9 %; HCT 39.6 % (37.2-46.3); HGB 11.9 g/dL (12.0-15.0); Lymphocytes # (A) 0.56 X 10*3/uL (0.90-5.00); Lymphocytes % (A) 13.3 %; MCH 24.6 pg (27.0-32.0); MCHC 30.1 g/dL (32.0-37.0); MCV 81.8 fL (80.0-97.0); Mean Platelet Volume 11.1 fL (9.5-12.2); Monocytes # (A) 0.39 X 10*3/uL (0.20-1.00); Monocytes % (A) 9.3 %; Neutrophils # (A) 3.09 X 10*3/uL (1.80-7.70); Neutrophils % (A) 73.3 %; Platelet Count 238 X 10*3/uL (140-440); RBC 4.84 X 10*6/uL (4.10-5.20); RDW 16.5 % (11.5-14.5); WBC 4.21 X 10*3/uL (4.50-10.00)
[2021-02-18 17:50] LABS: Albumin 4.6 g/dL (3.8-4.9); Albumin/Globulin Ratio 2.26 (1.60-3.17); Anion Gap 15.3 mmol/L (4.00-12.00); BUN/Creat Ratio 27.88 Ratio (12.00-20.00); Blood Urea Nitrogen 24.7 mg/dL (9.0-27.0); Calcium 9.6 mg/dL (8.7-10.3); Carbon Dioxide 21.9 mmol/L (21.6-31.8); Non-African American GFR(CKD) 65.6 (60.0-200.0); Potassium 4.8 mmol/L (3.5-5.5); Total Bilirubin 0.2 mg/dL (0.30-1.20); Total Protein 6.6 g/dL (6.2-8.2)
== END | disposition home or self-care (01) ==
LOC: LABWHC1 08:47
PROVIDERS: ATTEND Nurse Practitioner Acute Care
DX: Z51.81 Encounter for therapeutic drug level monitoring (principal); E55.9 Vitamin D deficiency, unspecified; E53.9 Vitamin B deficiency, unspecified; G35 Multiple sclerosis; R53.83 Other fatigue
CPT/HCPCS: 36415; 80053; 82180; 82306; 84207; 85025

== ENCOUNTER → 2021-03-23 | Outpatient (CLI) | payer MEDICARE, OTHER ==
--- NOTE | 2021-03-23 12:43 | CTL ---
EXAMINATION TYPE: CT Low Dose Lung DATE OF EXAM ORDERED: 03/23/2021 HISTORY: . Lung cancer screening CT DLP: 123.[address] CTDI: 3.90 mGy Automated exposure control for dose reduction was used. SCREENING VISIT: COMPARISON: None TECHNIQUE: Low dose computed tomography scan was performed through the chest at 1 mm thick sections a nd reconstructed images in multiple planes at 1 mm and [address] DIAGNOSTIC QUALITY: Satisfactory FINDINGS: Biapical pleural thickening is noted. There is a subpleural left upper lobe nodule measuring 2 mm axi al image 79. There is a 3 mm nodule axial image 138 right upper lobe. There is no evidence of pneumothorax or pleural effusion. Vague areas of groundglass density are most likely in the basis of atelectasis. Hypertrophic and degenerative changes of the spine. Mild changes of COPD. IMPRESSION: 1. There is a 2 mm subpleural left upper lobe and 3 mm nodule right upper lobe which have a benign ap pearance. CT LUNG RAD AND CT CHEST RECOMMENDATION: Lung-Rad 2 Benign Appearance or Behavior: Continue annual sc reening with LDCT in 12 months. S Modifier (other clinically significant findings): None
== END | disposition home or self-care (01) ==
LOC: RADCTMAIN 11:58
PROVIDERS: ATTEND Internal Medicine
DX: Z12.2 Encounter for screening for malignant neoplasm of respiratory organs (principal); R91.1 Solitary pulmonary nodule
CPT/HCPCS: 71271

== ENCOUNTER → 2021-06-23 | Outpatient (CLI) | payer MEDICARE, OTHER ==
--- NOTE | 2021-06-24 10:11 | BD ---
EXAMINATION TYPE: Axial Bone Density DATE OF EXAM: 06/23/2021 COMPARISON: 03/26/2018 CLINICAL HISTORY: Postmenopausal screening Height: 64 IN Weight: 218 LBS FRAX RISK QUESTIONS: Secondary Osteoporosis: 3. Menopause before 45: AGE 39 Current Tobacco Use: YES RISK FACTORS HISTORY OF: Surgery to Spine: L SPINE SURGERY 2009 Family History of Osteoporosis: SISTER Active: LIMITED DUE TO MS Diet low in dairy products/other sources of calcium: YES Postmenopausal woman: AGE 39 Take estrogen and/or progesterone medications: NOT NOW TOOK FOR 1 YEAR MEDICATIONS: Thyroid Medications: YES Which medication: Levothyroxine How Lon+ YEARS Additional Medications: VIT D, LEVOTHYROXINE, MS MEDS, BLOOD PRESSURE MEDS, RESTLESS LEGS MEDS, JENNIFER STEROL MEDS, BLOOD THINNER, EXAM MEASUREMENTS: Bone mineral densitometry was performed using the [employer] System. L SPINE SURGERY Bone mineral density about the R hip (g/cm2): 0.926 Bone mineral density about the L hip (g/cm2): 0.982 T Score values are as follows: -----R Neck: -0.8 -----L Neck: -0.4 -----R Total: -0.2 -----L Total: 0.2 Bone mineral density has: Decreased -2.8% since study of: 03/26/2018 Bone mineral density about the L Wrist (g/cm2): 0.637 T Score values are as follows: -----Dist. R+U: -0.2 -----Prox. R+U: 0.0 -----Radius total: -0.6 Bone mineral density has: Decreased -8.1% since study of: 03/26/2018 IMPRESSION: Normal (Values between +1 and -1 indicate normal bone mass). Consider repeating this study in 5 year s or sooner if there is some new clinical indication. NOTE: T-SCORE=SD OF THE YOUNG ADULT MEAN.
== END | disposition home or self-care (01) ==
LOC: RADBDWWP 13:14
PROVIDERS: ATTEND Internal Medicine
DX: Z78.0 Asymptomatic menopausal state (principal)
CPT/HCPCS: 77080

== ENCOUNTER → 2021-06-23 | Outpatient (CLI) | payer MEDICARE, OTHER ==
[2021-06-23 19:17] LABS: Basophils # (A) 0.03 X 10*3/uL (0.00-0.10); Basophils % (A) 0.5 %; Eosinophils # (A) 0.11 X 10*3/uL (0.04-0.35); Eosinophils % (A) 1.8 %; HCT 36.6 % (37.2-46.3); HGB 10.8 g/dL (12.0-15.0); Immature Grans, Automated 0.3 %; Lymphocytes # (A) 0.68 X 10*3/uL (0.90-5.00); Lymphocytes % (A) 11.4 %; MCH 22.7 pg (27.0-32.0); MCHC 29.5 g/dL (32.0-37.0); MCV 77.1 fL (80.0-97.0); Mean Platelet Volume 10.8 fL (9.5-12.2); Monocytes # (A) 0.44 X 10*3/uL (0.20-1.00); Monocytes % (A) 7.4 %; NRBC Per 100 WBC 0 /100 WBCS (0.0-0.0); Neutrophils # (A) 4.68 X 10*3/uL (1.80-7.70); Neutrophils % (A) 78.6 %; Platelet Count 202 X 10*3/uL (140-440); RBC 4.75 X 10*6/uL (4.10-5.20); RDW 15.7 % (11.5-14.5); WBC 5.96 X 10*3/uL (4.50-10.00)
== END | disposition home or self-care (01) ==
LOC: LABWHC1 12:47
PROVIDERS: ATTEND Internal Medicine
DX: I10 Essential (primary) hypertension (principal); E03.9 Hypothyroidism, unspecified; E78.2 Mixed hyperlipidemia
CPT/HCPCS: 36415; 85025

== ENCOUNTER → 2021-12-01 | Outpatient (CLI) | payer MEDICARE, OTHER ==
[2021-12-01 15:07] LABS: HCT 30.6 % (37.2-46.3); HGB 8.4 g/dL (12.0-15.0); MCH 20.2 pg (27.0-32.0); MCHC 27.5 g/dL (32.0-37.0); MCV 73.6 fL (80.0-97.0); Mean Platelet Volume 10.7 fL (9.5-12.2); NRBC Per 100 WBC 0 /100 WBCS (0.0-0.0); Platelet Count 206 X 10*3/uL (140-440); RBC 4.16 X 10*6/uL (4.10-5.20); Reticulocyte % 1.35 % (0.10-1.80); WBC 3.99 X 10*3/uL (4.50-10.00)
[2021-12-01 15:12] LABS: % Iron Saturation 2.01 (12.00-45.00); Ferritin 4.7 ng/mL (10.0-291.0)
== END | disposition home or self-care (01) ==
LOC: LABWHC1 10:45
PROVIDERS: ATTEND Internal Medicine
DX: D64.9 Anemia, unspecified (principal)
CPT/HCPCS: 36415; 82607; 82728; 82746; 83010; 83540; 83550; 83615; 85027; 85045

== ENCOUNTER → 2022-02-02 | Outpatient (CLI) | payer MEDICARE, OTHER ==
--- NOTE | 2022-02-03 08:13 | MM ---
Reason for Exam: Screening (asymptomatic). Last mammogram was performed 1 year(s) and 3 month(s) ago. Patient History: Menarche at age 11. First Full-Term at age 20. Postmenopausal. Other cancer, age 70. Cyst Aspiration on the Right side. Risk Values: Rachel 5 year model risk: 1.6%. NCI Lifetime model risk: 4.1%. Prior Study Comparison: 12/17/2018 Right Diagnostic Mammogram, [facility]. 10/14/2019 Bilateral Screening Mammogram, [facility]. 10/28/2020 Bilateral Screening Mammogram, [facility]. Tissue Density: The breast tissue is heterogeneously dense. This may lower the sensitivity of mammography. Findings: Analyzed By CAD. There is no suspicious group of microcalcifications or new suspicious mass in either breast. Overall Assessment: Negative, BI-RAD 1 Management: Screening Mammogram of both breasts in 1 year. A clinical breast exam by your physician is recommended on an annual basis and results should be correlated with mammographic findings. Electronically signed and approved by: Juvenal Treadwell M.D. Radiologis
== END | disposition home or self-care (01) ==
LOC: RADMAMWWP 10:41
PROVIDERS: ATTEND Internal Medicine
DX: Z12.31 Encounter for screening mammogram for malignant neoplasm of breast (principal); R92.8 Other abnormal and inconclusive findings on diagnostic imaging of breast
CPT/HCPCS: 77063; 77067

== ENCOUNTER → 2022-03-28 | Outpatient (CLI) | payer MEDICARE, OTHER ==
[2022-03-28 18:52] LABS: African American GFR (CKD) 73.5 (60.0-200.0); Blood Urea Nitrogen 12.6 mg/dL (9.0-27.0); Calcium 9.4 mg/dL (8.7-10.3); Magnesium 1.2 mg/dL (1.5-2.4); Non-African American GFR(CKD) 63.4 (60.0-200.0); Potassium 4.2 mmol/L (3.5-5.5)
== END | disposition home or self-care (01) ==
LOC: LABWHC1 11:18
PROVIDERS: ATTEND Internal Medicine Interventional Cardiology
DX: I10 Essential (primary) hypertension (principal)
CPT/HCPCS: 36415; 80048; 83735

== ENCOUNTER → 2022-04-13 | Outpatient (CLI) | payer MEDICARE, OTHER ==
[2022-04-13 17:35] LABS: % Iron Saturation 2.94 (12.00-45.00); Ferritin 6.7 ng/mL (10.0-291.0)
[2022-04-13 18:29] LABS: Basophils # (A) 0.03 X 10*3/uL (0.00-0.10); Basophils % (A) 0.6 %; Eosinophils # (A) 0.07 X 10*3/uL (0.04-0.35); Eosinophils % (A) 1.5 %; HCT 34.3 % (37.2-46.3); HGB 9.8 g/dL (12.0-15.0); Immature Grans, Automated 0.2 %; Lymphocytes # (A) 0.53 X 10*3/uL (0.90-5.00); Lymphocytes % (A) 11.2 %; MCHC 28.6 g/dL (32.0-37.0); Mean Platelet Volume 11.5 fL (9.5-12.2); Monocytes # (A) 0.25 X 10*3/uL (0.20-1.00); Monocytes % (A) 5.3 %; NRBC Per 100 WBC 0 /100 WBCS (0.0-0.0); Neutrophils # (A) 3.83 X 10*3/uL (1.80-7.70); Neutrophils % (A) 81.2 %; Platelet Count 229 X 10*3/uL (140-440); WBC 4.72 X 10*3/uL (4.50-10.00)
[2022-04-13 18:30] LABS: Anisocytosis (M) 2+; Elliptocytes 2+; Microcytosis (M) 2+
== END | disposition home or self-care (01) ==
LOC: LABWHC1 10:36
PROVIDERS: ATTEND Internal Medicine
DX: D50.9 Iron deficiency anemia, unspecified (principal)
CPT/HCPCS: 36415; 82728; 83540; 83550; 85025

== ENCOUNTER → 2022-12-16 | Outpatient (CLI) | payer MEDICARE, OTHER ==
--- NOTE | 2022-12-19 02:07 | CTL ---
EXAMINATION TYPE: CT Low Dose Lung DATE OF EXAM ORDERED: 12/16/2022 HISTORY: 72-year-old female Z12.2 ENCNTR SCREEN FOR MALIGNANT NEOPLASM OF RESP. Lung cancer screening . Current smoker with 40 pack-year history. CT DLP: 119.[address] CTDI: 3.6 mGy Automated exposure control for dose reduction was used. SCREENING VISIT: Follow-up after 2 years COMPARISON: 03/23/2021 TECHNIQUE: Low dose computed tomography scan was performed through the chest with coronal and sagitta l reconstructions. CT DIAGNOSTIC QUALITY: Satisfactory FINDINGS: Heart is normal size without pericardial effusion. Ectatic ascending aorta 3.6 cm. Ectatic upper descending thoracic aorta 3.0 cm. Mildly dilated main right and left pulmonary arteries measuring up to 2.7 cm may reflect underlying p ulmonary hypertension. No thoracic lymphadenopathy by CT size criteria. 4 mm right middle lobe pulmonary nodule, axial image 145. Mild centrilobular emphysema. Minimal biapical pleural-parenchymal scarring. Mild diffuse bronchial w all thickening. No consolidation or pleural effusion. Tiny hiatal hernia noted. Visualized upper abdomen otherwise shows no gross abnormality. Bones: Extensive dish mid and lower thoracic spine. IMPRESSION: 1. Lungs RADS 2, benign. Stable 4 mm right middle lobe pulmonary nodule. 2. COPD with mild emphysema. Possible underlying pulmonary arterial hypertension. CT LUNG RAD AND CT CHEST RECOMMENDATION: Lung-Rad 2 Benign Appearance or Behavior: Continue annual sc reening with LDCT in 12 months. S Modifier (other clinically significant findings): None
== END | disposition home or self-care (01) ==
LOC: RADCTMAIN 13:05
PROVIDERS: ATTEND Internal Medicine
DX: Z12.2 Encounter for screening for malignant neoplasm of respiratory organs (principal); J43.2 Centrilobular emphysema; R91.1 Solitary pulmonary nodule; F17.210 Nicotine dependence, cigarettes, uncomplicated
CPT/HCPCS: 71271

== ENCOUNTER 2023-04-08 17:52 | Emergency (ER) | payer MEDICARE, OTHER ==
[2023-04-08 18:02] VITALS: RESP 18
[2023-04-08] MEDS ORDERED: HYDROmorphone 1 MG/ML 1 ML SYRINGE IM STA (18:31)
[2023-04-08] MEDS ORDERED: KETOROLAC 15 MG/ML 1 ML VIAL IM STA (18:31)
--- NOTE | 2023-04-08 18:32 | ED ---
General Adult HPI - General Chief complaint: Back Pain/Injury Stated complaint: Back Pain Time Seen by Provider: 04/08/23 18:19 Source: patient, EMS, RN notes reviewed Mode of arrival: EMS Limitations: no limitations - History of Present Illness Initial comments: Patient is a pleasant 73-year-old female presenting to the emergency department with concerns for back pain. Patient has had chronic back pain for several years. Patient has had previous surgeries and does have a STEMI later. No incontinence or retention of bowel or bladder. No new weakness. Patient did take a Percocet earlier without much improvement of her symptoms. - Related Data Home Medications Medication Instructions Recorded Confirmed Acyclovir [Zovirax] 400 mg PO BID 03/20/18 06/07/22 Levothyroxine Sodium 25 mcg PO DAILY 03/20/18 06/07/22 Omeprazole [PriLOSEC] 20 mg PO AC-BRKFST 03/20/18 06/07/22 lisinopriL 40 mg PO HS 03/20/18 06/09/22 Ergocalciferol (Vitamin D2) 1,250 mcg PO Q7D 09/17/20 06/09/22 [Vitamin D2 (50,000 Iu)] rOPINIRole HCL [Requip] 3 mg PO HS 09/17/20 06/09/22 Ascorbic Acid [Vitamin C] 500 mg PO DAILY 06/07/22 06/07/22 Cyanocobalamin (Vitamin B-12) 1,000 mcg PO DAILY 06/07/22 06/07/22 [Vitamin B-12] Diroximel Fumarate [Vumerity] 462 mg PO BID 06/07/22 06/07/22 Ezetimibe [Zetia] 10 mg PO DAILY 06/07/22 06/07/22 Magnesium 400 mg PO DAILY 06/07/22 06/07/22 traMADol HCl [Ultram] 100 mg PO TID 06/07/22 06/07/22 Allergies Allergy/AdvReac Type Severity Reaction Status Date / Time No Known Allergies Allergy Verified 06/09/22 13:45 Review of Systems ROS Statement: Those systems with pertinent positive or pertinent negative responses have been documented in the HPI. ROS Other: All systems not noted in ROS Statement are negative. Constitutional: Denies: fever Eyes: Denies: eye pain ENT: Denies: ear pain Respiratory: Denies: cough, dyspnea Cardiovascular: Denies: chest pain Endocrine: Denies: fatigue Gastrointestinal: Denies: abdominal pain Musculoskeletal: Reports: as per HPI, back pain Neurological: Denies: weakness Past Medical History Past Medical History: Diabetes Mellitus, GERD/Reflux, Hyperlipidemia, Hypertension, Osteoarthritis (OA), Thyroid Disorder Additional Past Medical History / Comment(s): MULTIPLE SCLEROSIS, GENITAL HERPES, ANEMIA, OCCASIONAL IRREGULAR HEART BEAT., HX OF DIABETES WITH INSULIN - NO RX NOW., USES WALKER AND W/C PRN. History of Any Multi-Drug Resistant Organisms: None Reported Past Surgical History: Back Surgery, Orthopedic Surgery Additional Past Surgical History / Comment(s): CARPAL TUNNEL, (2) SPINAL SURGERIES., EYELID SURGERY., NOSE SURGERY. Past Anesthesia/Blood Transfusion Reactions: No Reported Reaction, Motion Sickness Past Psychological History: No Psychological Hx Reported Smoking Status: Current every day smoker Past Alcohol Use History: Occasional Past Drug Use History: None Reported - Past Family History Mother Family Medical History: Cancer Additional Family Medical History / Comment(s): LEUKEMIA Brother(s) Family Medical History: Cancer Additional Family Medical History / Comment(s): BROTHER # 1 ESOPHAGEAL CANCER. BROTHER #2 PANCREATIC CANCER. BROTHER #3 STOMACH & ESOPHAGEAL CANCER General Exam Limitations: no limitations General appearance: alert, in no apparent distress Head exam: Present: normocephalic Eye exam: Present: normal appearance Neck exam: Present: normal inspection Respiratory exam: Present: normal lung sounds bilaterally Cardiovascular Exam: Present: regular rate, normal rhythm Expanded Peripheral pulses: 2+: Posterior Tibialis (R), Posterior Tibialis (L) GI/Abdominal exam: Present: soft. Absent: tenderness Back exam: Present: full ROM, tenderness (Trace tenderness in the upper thoracic region) Neurological exam: Present: alert. Absent: motor sensory deficit Psychiatric exam: Present: normal affect, normal mood Skin exam: Present: normal color Course Vital Signs 04/08/23 17:56 Temperature 98.5 F Pulse Rate 99 Respiratory 18 Rate Blood Pressure 121/74 O2 Sat by Pulse 97 Oximetry Medical Decision Making - Medical Decision Making Was pt. sent in by a medical professional or institution (, PA, BREAKFAST HOSTESS, urgent care, hospital, or alf...) When possible be specific @ -No Did you speak to anyone other than the patient for history (EMS, parent, family, police, friend...)? What history was obtained from this source @ -No Did you review nursing and triage notes (agree or disagree)? Why? @ -I reviewed and agree with nursing and triage notes Were old charts reviewed (outside hosp., previous admission, EMS record, old EKG, old radiological studies, urgent care reports/EKG's, alf records)? Report findings @ -No old charts were reviewed Differential Diagnosis (chest pain, altered mental status, abdominal pain women, abdominal pain men, vaginal bleeding, weakness, fever, dyspnea, syncope, headache, dizziness, GI bleed, back pain, seizure, CVA, palpatations, mental health, musculoskeletal)? @ -Differential Back Pain: Strain, zoster, cauda equina syndrome, epidural abscess, vertebral osteomyelitis, discitis, fracture, subluxation, disc herniation, DJD, spinal stenosis, dissection, AAA, pancreatitis, peptic ulcer disease, pyelonephritis, kidney stone, this is not meant to be an all-inclusive list. EKG interpreted by me (3pts min.). @ -As above X-rays interpreted by me (1pt min.). @ -X-ray thoracic spine and lumbar spine show chronic changes without acute abnormality CT interpreted by me (1pt min.). @ -None done U/S interpreted by me (1pt. min.). @ -None done What testing was considered but not performed or refused? (CT, X-rays, U/S, labs)? Why? @ -None What meds were considered but not given or refused? Why? @ -None Did you discuss the management of the patient with other professionals (professionals i.e. , PA, BREAKFAST HOSTESS, lab, RT, psych nurse, hospice social worker, grain drier operator, teacher, fourth officer, case maker)? Give summary @ -No Was smoking cessation discussed for >3mins.? @ -No Was critical care preformed (if so, how long)? @ -No Were there social determinants of health that impacted care today? How? (Homelessness, low income, unemployed, alcoholism, drug addiction, transportation, low edu. Level, literacy, decrease access to med. care, detention, rehab)? @ -No Was there de-escalation of care discussed even if they declined (Discuss DNR or withdrawal of care, Hospice)? DNR status @ -No What co-morbidities impacted this encounter? (DM, HTN, Smoking, COPD, CAD, Cancer, CVA, ARF, Chemo, Hep., AIDS, mental health diagnosis, sleep apnea, morbid obesity)? @ -None Was patient admitted / discharged? Hospital course, mention meds given and route, prescriptions, significant lab abnormalities, going to OR and other pertinent info. @ -Patient reevaluated and feels much better with medications. Patient updated on results and need for follow-up. Undiagnosed new problem with uncertain prognosis? @ -No Drug Therapy requiring intensive monitoring for toxicity (Heparin, Nitro, Insulin, Cardizem)? @ -No Were any procedures done? @ -No Diagnosis/symptom? @ -back pain Acute, or Chronic, or Acute on Chronic? @ -Acute on chronic Uncomplicated (without systemic symptoms) or Complicated (systemic symptoms)? @ -default Side effects of treatment? @ -No Exacerbation, Progression, or Severe Exacerbation? @ -No Poses a threat to life or bodily function? How? (Chest pain, [place], [place], pneumonia, PE, COPD, DKA, ARF, appy, cholecystitis, CVA, Diverticulitis, Homicidal, Suicidal, threat to staff... and all critical care pts) @ -No - Lab Data Lab Results 04/08/23 Range/Units 20:19 Troponin I <0.012 (0.000-0.034) ng/mL Disposition Clinical Impression: Back pain Disposition: HOME SELF-CARE Condition: Stable Instructions (If sedation given, give patient instructions): Back Pain (ED) Additional Instructions: Please do follow-up to primary care physician in the next one or 2 days for recheck. Return for weakness, chest pain, worsening or changing symptoms or any other concerns. Is patient prescribed a controlled substance at d/c from ED?: No Referrals: Lila Aldana MD [Primary Care Provider] - 1-2 days Time of Disposition: 21:00
--- NOTE | 2023-04-08 20:15 | XR ---
EXAMINATION TYPE: XR lumbar spine 2 or 3V DATE OF EXAM: 04/08/2023 6:16 PM CLINICAL INDICATION:Female, 73 years old with history of back pain; H COMPARISON: None TECHNIQUE: XR lumbar spine 2 or 3V - FINDINGS: Osseous structures appear somewhat demineralized. No destructive osseous process is seen. T here is mild/moderate multilevel degenerative disc disease and facet arthrosis. No evidence of acute compression fracture. Postoperative changes with bilateral pedicle screws and posterior fixation rods and prosthetic disc interspacer L4-L5. No significant listhesis is seen. Partially seen presumed roge rostimulator over the left upper back with leads extending cranially beyond the film. Moderate calcif ication of the abdominal aorta. Nonobstructive bowel gas pattern. IMPRESSION: 1. No radiographic evidence of acute compression fracture lumbar spine. 2. Mild/moderate multilevel spondylosis..
--- NOTE | 2023-04-08 20:25 | XR ---
EXAMINATION TYPE: XR thoracic spine complete DATE OF EXAM: 04/08/2023 6:16 PM CLINICAL INDICATION:Female, 73 years old with history of back pain; [facility] COMPARISON: TECHNIQUE: Right views of the thoracic spine in Frontal and lateral projections with swimmer's view. FINDINGS: Bones appear somewhat demineralized. There is moderate multilevel degenerative disc disease with pred ominantly anterior marginal osteophytes. Disc spaces appear relatively served, and DISH is a consider ation. No evidence of acute compression fracture. Pedicles appear intact. Partially seen neurostimula tor on the left with leads extending into the cervical spine canal posteriorly terminating about the C2 or C3 level. ACDF hardware plate is seen anteriorly spanning what appears to be the C4-C5-C6 level s, with probable vertebral body construct at C5. The visualized heart appears mildly enlarged with mi ld tortuosity of the aorta. Some coarsening of the interstitium bilaterally may reflect chronic rosa es. IMPRESSION: No acute radiographic abnormality of the thoracic spine. Moderate multilevel spondylosis as above.
[2023-04-08 21:38] VITALS: BP 130/74; PULSE 82; TEMP 98.4
== END 2023-04-08 21:10 | disposition home or self-care (01) ==
LOC: EC 17:52
DX: M47.815 Spondylosis without myelopathy or radiculopathy, thoracolumbar region (principal); E11.9 Type 2 diabetes mellitus without complications; I10 Essential (primary) hypertension; M19.90 Unspecified osteoarthritis, unspecified site; E07.9 Disorder of thyroid, unspecified; F17.200 Nicotine dependence, unspecified, uncomplicated; K21.9 Gastro-esophageal reflux disease without esophagitis; Z79.890 Hormone replacement therapy; Z79.899 Other long term (current) drug therapy; Z79.1 Long term (current) use of non-steroidal anti-inflammatories (NSAID)
CPT/HCPCS: 36415; 84484; 72072; 72100; 99284; 96372 ×2; J1170; J1885

== ENCOUNTER 2023-06-07 20:37 | Emergency (ER) | payer MEDICARE, OTHER ==
[2023-06-07] MEDS ORDERED: HYDROmorphone 0.5 MG/0.5 ML SYRINGE IM STA (21:01)
[2023-06-07] MEDS ORDERED: LIDOCAINE 4% PATCH TOPICAL ONE (21:01)
--- NOTE | 2023-06-07 21:01 | ED ---
Back Pain HPI - General Chief Complaint: Back Pain/Injury Stated Complaint: back pain Time Seen by Provider: 06/07/23 21:00 Source: patient Limitations: no limitations - History of Present Illness Initial Comments: 73-year-old female presenting with chief complaint of back pain. Patient has chronic mid to lower back pain. She states that she has a pinched nerve, she currently sees Dr. Escobar for this. She states that she has had this pain every day for 3 years. She has no changes to this pain. When asked why she came today she states "I just cannot take it". She currently takes gabapentin and [place] at home which is not alleviating the pain. She is requesting pain medication to "knock her out". She has no radiculopathy symptoms. No loss of bowel or bladder control or saddle paresthesia. No new injury or trauma. She was seen here last month for this pain and had imaging done which showed no acute process. - Related Data Home Medications Medication Instructions Recorded Confirmed Acyclovir [Zovirax] 400 mg PO BID 03/20/18 06/07/22 Levothyroxine Sodium 25 mcg PO DAILY 03/20/18 06/07/22 Omeprazole [PriLOSEC] 20 mg PO AC-BRKFST 03/20/18 06/07/22 lisinopriL 40 mg PO HS 03/20/18 06/09/22 Ergocalciferol (Vitamin D2) 1,250 mcg PO Q7D 09/17/20 06/09/22 [Vitamin D2 (50,000 Iu)] rOPINIRole HCL [Requip] 3 mg PO HS 09/17/20 06/09/22 Ascorbic Acid [Vitamin C] 500 mg PO DAILY 06/07/22 06/07/22 Cyanocobalamin (Vitamin B-12) 1,000 mcg PO DAILY 06/07/22 06/07/22 [Vitamin B-12] Diroximel Fumarate [Vumerity] 462 mg PO BID 06/07/22 06/07/22 Ezetimibe [Zetia] 10 mg PO DAILY 06/07/22 06/07/22 Magnesium 400 mg PO DAILY 06/07/22 06/07/22 traMADol HCl [Ultram] 100 mg PO TID 06/07/22 06/07/22 Allergies Allergy/AdvReac Type Severity Reaction Status Date / Time No Known Allergies Allergy Verified 06/07/23 21:00 Review of Systems ROS Statement: Those systems with pertinent positive or pertinent negative responses have been documented in the HPI. ROS Other: All systems not noted in ROS Statement are negative. Past Medical History Past Medical History: Diabetes Mellitus, GERD/Reflux, Hyperlipidemia, Hypertension, Osteoarthritis (OA), Thyroid Disorder Additional Past Medical History / Comment(s): MULTIPLE SCLEROSIS, GENITAL HERPES, ANEMIA, OCCASIONAL IRREGULAR HEART BEAT., HX OF DIABETES WITH INSULIN - NO RX NOW., USES WALKER AND W/C PRN. History of Any Multi-Drug Resistant Organisms: None Reported Past Surgical History: Back Surgery, Orthopedic Surgery Additional Past Surgical History / Comment(s): CARPAL TUNNEL, (2) SPINAL SURGERIES., EYELID SURGERY., NOSE SURGERY. Past Anesthesia/Blood Transfusion Reactions: No Reported Reaction, Motion Sickness Past Psychological History: No Psychological Hx Reported Smoking Status: Current every day smoker Past Alcohol Use History: Occasional Past Drug Use History: None Reported - Past Family History Mother Family Medical History: Cancer Additional Family Medical History / Comment(s): LEUKEMIA Brother(s) Family Medical History: Cancer Additional Family Medical History / Comment(s): BROTHER # 1 ESOPHAGEAL CANCER. BROTHER #2 PANCREATIC CANCER. BROTHER #3 STOMACH & ESOPHAGEAL CANCER General Exam Limitations: no limitations General appearance: alert, in distress (patient is yelling in pain, she tells me she does this everyday) Head exam: Present: atraumatic, normocephalic Eye exam: Present: normal appearance, EOMI Neck exam: Present: normal inspection Respiratory exam: Present: normal lung sounds bilaterally. Absent: respiratory distress, wheezes, rales, rhonchi, stridor Cardiovascular Exam: Present: regular rate, normal rhythm, normal heart sounds. Absent: systolic murmur, diastolic murmur, rubs, gallop, clicks Back exam: Present: normal inspection. Absent: paraspinal tenderness, vertebral tenderness Neurological exam: Present: alert, oriented X3 Psychiatric exam: Present: normal affect, normal mood Skin exam: Present: warm, dry Course Vital Signs 06/07/23 20:56 Temperature 98 F Pulse Rate 71 Respiratory 18 Rate Blood Pressure 111/64 O2 Sat by Pulse 96 Oximetry Medical Decision Making - Medical Decision Making Was pt. sent in by a medical professional or institution (Dr., PA, MULTICULTURAL MANAGER, urgent care, hospital, or detention...) When possible be specific @ -No Did you speak to anyone other than the patient for history (EMS, parent, family, police, friend...)? What history was obtained from this source @ -No Did you review nursing and triage notes (agree or disagree)? Why? @ -I reviewed and agree with nursing and triage notes Were old charts reviewed (outside hosp., previous admission, EMS record, old EKG, old radiological studies, urgent care reports/EKG's, detention records)? Report findings @ -Previous ER visit and x-rays are reviewed Differential Diagnosis (chest pain, altered mental status, abdominal pain women, abdominal pain men, vaginal bleeding, weakness, fever, dyspnea, syncope, headache, dizziness, GI bleed, back pain, seizure, CVA, palpatations, mental health, musculoskeletal)? @ - [facility] Differential Back Pain: Strain, zoster, cauda equina syndrome, epidural abscess, vertebral osteomyelitis, discitis, fracture, subluxation, disc herniation, DJD, spinal stenosis, dissection, AAA, pancreatitis, peptic ulcer disease, pyelonephritis, kidney stone this is not meant to be an all-inclusive list. EKG interpreted by me (3pts min.). @ -As above X-rays interpreted by me (1pt min.). @ -None done CT interpreted by me (1pt min.). @ -None done U/S interpreted by me (1pt. min.). @ -None done What testing was considered but not performed or refused? (CT, X-rays, U/S, la bs)? Why? @ -None What meds were considered but not given or refused? Why? @ -None Did you discuss the management of the patient with other professionals (professionals i.e. RODRIGUEZ Brooke, MULTICULTURAL MANAGER, lab, RT, psych nurse, social group worker, geological engineering teacher, teacher, chief science officer, pillowcase maker)? Give summary @ -No Was smoking cessation discussed for >3mins.? @ -No Was critical care preformed (if so, how long)? @ -No Were there social determinants of health that impacted care today? How? (Homelessness, low income, unemployed, alcoholism, drug addiction, transportation, low edu. Level, literacy, decrease access to med. care, nursing home, rehab)? @ -No Was there de-escalation of care discussed even if they declined (Discuss DNR or withdrawal of care, Hospice)? DNR status @ -No What co-morbidities impacted this encounter? (DM, HTN, Smoking, COPD, CAD, Cancer, CVA, ARF, Chemo, Hep., AIDS, mental health diagnosis, sleep apnea, morbid obesity)? @ -None Was patient admitted / discharged? Hospital course, mention meds given and route, prescriptions, significant lab abnormalities, going to OR and other pertinent info. @ -73-year-old female with history of chronic back pain presenting with chief complaint of back pain. She states that this pain is consistent with her every day pain. She denies any new injury or trauma. No red flag symptoms. She states that she cannot take any more of her [place] or gabapentin at home so she came here for pain medication. Patient is given Dilaudid, toradol, and lidocaine patch. She has had previous x-rays which showed no acute process. She is instructed to follow-up with her neurologist. Follow-up with PCP. Report back to ER with any new or worsening symptoms. Discussed return parameters and answered all questions. Patient conveyed verbal understanding and agreed to the plan. I discussed this case in detail with my attending Dr. Covarrubias Undiagnosed new problem with uncertain prognosis? @ -No Drug Therapy requiring intensive monitoring for toxicity (Heparin, Nitro, Insulin, Cardizem)? @ -No Were any procedures done? @ -No Diagnosis/symptom? @ -Back pain Acute, or Chronic, or Acute on Chronic? @ -Chronic Uncomplicated (without systemic symptoms) or Complicated (systemic symptoms)? @ -Uncomplicated Side effects of treatment? @ -No Exacerbation, Progression, or Severe Exacerbation? @ -No Poses a threat to life or bodily function? How? (Chest pain, [place], [place], pneumonia, PE, COPD, DKA, ARF, appy, cholecystitis, CVA, Diverticulitis, Homicidal, Suicidal, threat to staff... and all critical care pts) @ -No Disposition Clinical Impression: Mid back pain Disposition: HOME SELF-CARE Condition: Good Instructions (If sedation given, give patient instructions): Back Pain (ED) Additional Instructions: Follow-up with PCP and orthopedics. Report back to ER with any new or worsening symptoms Is patient prescribed a controlled substance at d/c from ED?: No Referrals: Lila Aldana MD [Primary Care Provider] - 1-2 days Lucia Bradley DO [Doctor of Osteopathic Medicine] - 1-2 days Time of Disposition: 22:23
[2023-06-07 21:18] VITALS: BP 111/64; PULSE 71; RESP 18; TEMP 98
[2023-06-07] MEDS ORDERED: KETOROLAC 15 MG/ML 1 ML VIAL IM STA ×2 (22:22→22:24)
== END 2023-06-07 22:52 | disposition home or self-care (01) ==
LOC: EC 20:37
DX: M54.50 Low back pain, unspecified (principal); E11.9 Type 2 diabetes mellitus without complications; K21.9 Gastro-esophageal reflux disease without esophagitis; I10 Essential (primary) hypertension; E07.9 Disorder of thyroid, unspecified; F17.200 Nicotine dependence, unspecified, uncomplicated; Z79.890 Hormone replacement therapy; Z79.899 Other long term (current) drug therapy
CPT/HCPCS: 99284; 96372 ×2; J1885; J1170

== ENCOUNTER 2023-06-09 11:35 | Emergency (ER) | payer MEDICARE, OTHER ==
[2023-06-09] MEDS ORDERED: IPRATROPIUM-ALBUTEROL 3 ML NEB INHALATION STA (11:50)
--- NOTE | 2023-06-09 11:55 | ED ---
Recheck HPI - General Chief Complaint: Recheck/Abnormal Lab/Rx Stated Complaint: Hemoglobin Time Seen by Provider: 06/09/23 11:44 Source: patient, RN notes reviewed Mode of arrival: wheelchair Limitations: no limitations - History of Present Illness Initial Comments: This is a 73-year-old female who presents to the emergency department for low hemoglobin. Patient states that she saw her primary care provider yesterday for a cold that had been ongoing for about a week. She had blood work done at that time, demonstrating a low hemoglobin level, and she was instructed to come to the emergency department for evaluation. Reports some generalized weakness, which she thought was related to her being sick. She is on Xarelto for a hx of a-fib. Denies any abdominal pain, nausea, or vomiting. Also denies any blood in her stool or black or tarry stools. Unsure what exactly her hemoglobin was. She does have a history of anemia but has never required a blood transfusion. MD Complaint: abnormal lab - Related Data Home Medications Medication Instructions Recorded Confirmed Acyclovir [Zovirax] 400 mg PO BID 03/20/18 06/07/22 Levothyroxine Sodium 25 mcg PO DAILY 03/20/18 06/07/22 Omeprazole [PriLOSEC] 20 mg PO AC-BRKFST 03/20/18 06/07/22 lisinopriL 40 mg PO HS 03/20/18 06/09/22 Ergocalciferol (Vitamin D2) 1,250 mcg PO Q7D 09/17/20 06/09/22 [Vitamin D2 (50,000 Iu)] rOPINIRole HCL [Requip] 3 mg PO HS 09/17/20 06/09/22 Ascorbic Acid [Vitamin C] 500 mg PO DAILY 06/07/22 06/07/22 Cyanocobalamin (Vitamin B-12) 1,000 mcg PO DAILY 06/07/22 06/07/22 [Vitamin B-12] Diroximel Fumarate [Vumerity] 462 mg PO BID 06/07/22 06/07/22 Ezetimibe [Zetia] 10 mg PO DAILY 06/07/22 06/07/22 Magnesium 400 mg PO DAILY 06/07/22 06/07/22 traMADol HCl [Ultram] 100 mg PO TID 06/07/22 06/07/22 Allergies Allergy/AdvReac Type Severity Reaction Status Date / Time No Known Allergies Allergy Verified 06/09/23 11:41 Review of Systems ROS Statement: Those systems with pertinent positive or pertinent negative responses have been documented in the HPI. ROS Other: All systems not noted in ROS Statement are negative. Past Medical History Past Medical History: Diabetes Mellitus, GERD/Reflux, Hyperlipidemia, Hypertension, Osteoarthritis (OA), Thyroid Disorder Additional Past Medical History / Comment(s): MULTIPLE SCLEROSIS, GENITAL HERPES, ANEMIA, OCCASIONAL IRREGULAR HEART BEAT., HX OF DIABETES WITH INSULIN - NO RX NOW., USES WALKER AND W/C PRN. History of Any Multi-Drug Resistant Organisms: None Reported Past Surgical History: Back Surgery, Orthopedic Surgery Additional Past Surgical History / Comment(s): CARPAL TUNNEL, (2) SPINAL SURGERIES., EYELID SURGERY., NOSE SURGERY. Past Anesthesia/Blood Transfusion Reactions: No Reported Reaction, Motion Sickness Past Psychological History: No Psychological Hx Reported Smoking Status: Current every day smoker Past Alcohol Use History: None Reported Past Drug Use History: None Reported - Past Family History Mother Family Medical History: Cancer Additional Family Medical History / Comment(s): LEUKEMIA Brother(s) Family Medical History: Cancer Additional Family Medical History / Comment(s): BROTHER # 1 ESOPHAGEAL CANCER. BROTHER #2 PANCREATIC CANCER. BROTHER #3 STOMACH & ESOPHAGEAL CANCER General Exam Limitations: no limitations General appearance: alert, in no apparent distress Head exam: Present: atraumatic, normocephalic, normal inspection Respiratory exam: Present: wheezes, decreased breath sounds, prolonged expiratory Cardiovascular Exam: Present: regular rate, normal rhythm, normal heart sounds. Absent: systolic murmur, diastolic murmur, rubs, gallop, clicks GI/Abdominal exam: Present: soft, normal bowel sounds. Absent: distended, tenderness, guarding, rebound, rigid Rectal exam: Present: heme (+) stool Neurological exam: Present: alert, oriented X3, CN II-XII intact Psychiatric exam: Present: normal affect, normal mood Skin exam: Present: warm, dry, intact, normal color. Absent: rash Course Vital Signs 06/09/23 06/09/23 06/09/23 11:38 11:41 14:19 Temperature 97.4 F L 97.9 F Pulse Rate 100 79 Respiratory 18 20 16 Rate Blood Pressure 107/48 137/65 O2 Sat by Pulse 99 97 Oximetry 06/09/23 06/09/23 06/09/23 14:29 14:49 15:53 Temperature 97.6 F 97.6 F 98.6 F Pulse Rate 86 96 82 Respiratory 20 20 20 Rate Blood Pressure 116/60 116/87 127/60 O2 Sat by Pulse 97 96 95 Oximetry 06/09/23 16:00 Temperature 98.6 F Pulse Rate 82 Respiratory 20 Rate Blood Pressure 127/60 O2 Sat by Pulse 95 Oximetry Medical Decision Making - Medical Decision Making This is a 73-year-old female who presents to the emergency department for low hemoglobin. Was pt. sent in by a medical professional or institution? @ -Her PCP Did you speak to anyone other than the patient for history? @ -No Did you review nursing and triage notes? @ -Yes, and I agree, it is accurate with regards to the patient's symptoms. Were old charts reviewed? @ -No Differential Diagnosis? @ -Differential Low Hemoglobin: Iron deficiency, GI bleed, coagulopathy, destruction of RBCs, this is not meant to be an all-inclusive list. EKG interpreted by me (3pts min.)? @ -EKG interpreted by me demonstrating the following: Sinus rhythm with first- degree AV block. Ventricular rate 76 bpm, VA interval 274 ms, QRS duration 102 ms, QTC 386 ms. X-rays interpreted by me (1pt min.)? @ -Chest x-ray obtained, my interpretation identifies no localized consolidations or infiltrates. CT interpreted by me (1pt min.)? @ -Not obtained U/S interpreted by me (1pt. min.)? @ -Not obtained What testing was considered but not performed? (CT, X-rays, U/S, labs)? Why? @ -None What meds were considered but not given? Why? @ -None Did you discuss the management of the patient with other professionals? @ -Yes, Dr. Aldana, the patient's PCP, who advised transfer due to lack of GI coverage. Dr. Santillan at [facility] accepts the patient for ED to ED transfer. Did you reconcile home meds? @ -No Was smoking cessation discussed for >3mins.? @ -No Was critical care preformed (if so, how long)? @ -No Were there social determinants of health that impacted care today? How? (Homelessness, low income, unemployed, alcoholism, drug addiction, transportation, low edu. Level, literacy, decrease access to med. care, residential, rehab)? @ -No Was there de-escalation of care discussed even if they declined? (Discuss DNR or withdrawal of care, Hospice)? @ -No What co-morbidities impacted this encounter? (DM, HTN, Smoking, COPD, CAD, Cancer, CVA, Hep., AIDS, mental health diagnosis, sleep apnea, morbid obesity)? @ -DM, HLD, HTN, a-fib Was patient admitted / discharged? @ -Transferred. Lab work obtained revealing a hemoglobin of 6.6 as well as leukopenia with a white blood cell count of 2.9, and thrombocytopenia with platelets of 92,000. Stool occult is positive, however patient has no active bleeding. Patient also positive for COVID-19. Chest x-ray reveals no acute process. Patient transfused with 1 unit of packed red blood cells. Patient was otherwise hemodynamically stable without active bleeding and no Kcentra was administered. Given that we do not have a GI available, patient will be transferred to tertiary center for higher level of care. Patient accepted as ED to ED transfer at [facility]. Dr. Santillan is the accepting ED physician. Undiagnosed new problem with uncertain prognosis? @ -None Drug Therapy requiring intensive monitoring for toxicity (Heparin, Nitro, Insulin, Cardizem)? @ -None Were any procedures done? @ -None Diagnosis/symptom? @ -GI bleed, COVID-19 Acute, or Chronic, or Acute on Chronic? @ -Acute Uncomplicated (without systemic symptoms) or Complicated (systemic symptoms)? @ -Complicated Side effects of treatment? @ -None Exacerbation, Progression, or Severe Exacerbation] @ -Not applicable Poses a threat to life or bodily function? @ -Yes, persistent bleeding is life threatening. This case was discussed in detail with the attending ED physician, Dr. Coleman. Presentation, findings, and treatment plan discussed in detail as well. - Lab Data Result diagrams: 06/09/23 11:55 06/09/23 11:55 Lab Results 06/09/23 06/09/23 06/09/23 Range/Units 11:55 11:55 11:55 WBC 2.9 L (3.8-10.6) k/uL RBC 3.56 L (3.80-5.40) m/uL Hgb 6.6 L* (11.4-16.0) gm/dL Hct 23.5 L (34.0-46.0) % MCV 66.0 L (80.0-100.0) fL MCH 18.7 L (25.0-35.0) pg MCHC 28.3 L (31.0-37.0) g/dL RDW 19.0 H (11.5-15.5) % Plt Count 92 L (150-450) k/uL MPV 8.7 Neutrophils % (Manual) 82 % Band Neuts % (Manual) 1 % Lymphocytes % (Manual) 7 % Monocytes % (Manual) 10 % Neutrophils # (Manual) 2.40 (1.3-7.7) k/uL Lymphocytes # (Manual) 0.20 L (1.0-4.8) k/uL Monocytes # (Manual) 0.29 (0-1.0) k/uL Nucleated RBCs 0 (0-0) /100 WBC Manual Slide Review Performed Hypochromasia Marked Poikilocytosis Moderate Anisocytosis Slight Microcytosis Marked PT 15.8 H (10.0-12.5) sec INR 1.5 H (<1.2) APTT 32.9 H (22.0-30.0) sec Sodium 140 (137-145) mmol/L Potassium 3.9 (3.5-5.1) mmol/L Chloride 112 H (98-107) mmol/L Carbon Dioxide 19 L (22-30) mmol/L Anion Gap 9 mmol/L BUN 18 H (7-17) mg/dL Creatinine 0.70 (0.52-1.04) mg/dL Est GFR (CKD-EPI)AfAm >90 (>60 ml/min/1.73 sqM) Est GFR (CKD-EPI)NonAf 86 (>60 ml/min/1.73 sqM) Glucose 115 H (74-99) mg/dL Calcium 9.3 (8.4-10.2) mg/dL Total Bilirubin 0.4 (0.2-1.3) mg/dL AST 22 (14-36) U/L ALT 17 (4-34) U/L Alkaline Phosphatase 68 (38-126) U/L Total Protein 6.4 (6.3-8.2) g/dL Albumin 4.1 (3.5-5.0) g/dL Stool Occult Blood (Negative) Influenza Type A (PCR) (Not Detectd) Influenza Type B (PCR) (Not Detectd) RSV (PCR) (Not Detectd) SARS-CoV-2 (PCR) (Not Detectd) Blood Type Blood Type Confirm Blood Type Recheck Bld Type Recheck Status Antibody Screen Crossmatch Spec Expiration Date 06/09/23 06/09/23 06/09/23 Range/Units 11:55 11:55 12:16 WBC (3.8-10.6) k/uL RBC (3.80-5.40) m/uL Hgb (11.4-16.0) gm/dL Hct (34.0-46.0) % MCV (80.0-100.0) fL MCH (25.0-35.0) pg MCHC (31.0-37.0) g/dL RDW (11.5-15.5) % Plt Count (150-450) k/uL MPV Neutrophils % (Manual) % Band Neuts % (Manual) % Lymphocytes % (Manual) % Monocytes % (Manual) % Neutrophils # (Manual) (1.3-7.7) k/uL Lymphocytes # (Manual) (1.0-4.8) k/uL Monocytes # (Manual) (0-1.0) k/uL Nucleated RBCs (0-0) /100 WBC Manual Slide Review Hypochromasia Poikilocytosis Anisocytosis Microcytosis PT (10.0-12.5) sec INR (<1.2) APTT (22.0-30.0) sec Sodium (137-145) mmol/L Potassium (3.5-5.1) mmol/L Chloride (98-107) mmol/L Carbon Dioxide (22-30) mmol/L Anion Gap mmol/L BUN (7-17) mg/dL Creatinine (0.52-1.04) mg/dL Est GFR (CKD-EPI)AfAm (>60 ml/min/1.73 sqM) Est GFR (CKD-EPI)NonAf (>60 ml/min/1.73 sqM) Glucose (74-99) mg/dL Calcium (8.4-10.2) mg/dL Total Bilirubin (0.2-1.3) mg/dL AST (14-36) U/L ALT (4-34) U/L Alkaline Phosphatase (38-126) U/L Total Protein (6.3-8.2) g/dL Albumin (3.5-5.0) g/dL Stool Occult Blood (Negative) Influenza Type A (PCR) Not Detected (Not Detectd) Influenza Type B (PCR) Not Detected (Not Detectd) RSV (PCR) Not Detected (Not Detectd) SARS-CoV-2 (PCR) Detected A (Not Detectd) Blood Type O Negative Blood Type Confirm O Negative Blood Type Recheck No Previous Record Bld Type Recheck Status CABO Indicated Antibody Screen NEGATIVE Crossmatch See Detail Spec Expiration Date 06/12/2023 - 235406/09/23 Range/Units 12:45 WBC (3.8-10.6) k/uL RBC (3.80-5.40) m/uL Hgb (11.4-16.0) gm/dL Hct (34.0-46.0) % MCV (80.0-100.0) fL MCH (25.0-35.0) pg MCHC (31.0-37.0) g/dL RDW (11.5-15.5) % Plt Count (150-450) k/uL MPV Neutrophils % (Manual) % Band Neuts % (Manual) % Lymphocytes % (Manual) % Monocytes % (Manual) % Neutrophils # (Manual) (1.3-7.7) k/uL Lymphocytes # (Manual) (1.0-4.8) k/uL Monocytes # (Manual) (0-1.0) k/uL Nucleated RBCs (0-0) /100 WBC Manual Slide Review Hypochromasia Poikilocytosis Anisocytosis Microcytosis PT (10.0-12.5) sec INR (<1.2) APTT (22.0-30.0) sec Sodium (137-145) mmol/L Potassium (3.5-5.1) mmol/L Chloride (98-107) mmol/L Carbon Dioxide (22-30) mmol/L Anion Gap mmol/L BUN (7-17) mg/dL Creatinine (0.52-1.04) mg/dL Est GFR (CKD-EPI)AfAm (>60 ml/min/1.73 sqM) Est GFR (CKD-EPI)NonAf (>60 ml/min/1.73 sqM) Glucose (74-99) mg/dL Calcium (8.4-10.2) mg/dL Total Bilirubin (0.2-1.3) mg/dL AST (14-36) U/L ALT (4-34) U/L Alkaline Phosphatase (38-126) U/L Total Protein (6.3-8.2) g/dL Albumin (3.5-5.0) g/dL Stool Occult Blood Positive H (Negative) Influenza Type A (PCR) (Not Detectd) Influenza Type B (PCR) (Not Detectd) RSV (PCR) (Not Detectd) SARS-CoV-2 (PCR) (Not Detectd) Blood Type Blood Type Confirm Blood Type Recheck Bld Type Recheck Status Antibody Screen Crossmatch Spec Expiration Date - Radiology Data Radiology results: report reviewed, image reviewed Disposition Clinical Impression: GI bleed, COVID-19, Pancytopenia Disposition: OTHER INSTITUTION NOT DEFINED Referrals: Lila Aldana MD [Primary Care Provider] - 1-2 days Time of Disposition: 13:47 - Out of Hospital Transfer - Req. Specs Out of Hospital Transfer - Requested Specifics: Other Emergency Center ([facility]
--- NOTE | 2023-06-09 12:18 | XR ---
EXAMINATION TYPE: XR chest 2V DATE OF EXAM: 06/09/2023 COMPARISON: 09/17/2020 HISTORY: Shortness of breath TECHNIQUE: Frontal and lateral views of the chest are obtained. FINDINGS: Scattered senescent parenchymal changes noted. Hyperinflation compatible with COPD. No evidence for infiltrate. No evidence for atelectasis. Heart size is stable. Mediastinal structures are stable and grossly unremarkable. No evidence for hilar prominence. Degenerative changes dorsal spine. IMPRESSION: 1. No evidence for acute pulmonary disease.
[2023-06-09 12:24] LABS: Anisocytosis Slight; HCT 23.5 % (34.0-46.0); Hypochromasia Marked; MCH 18.7 pg (25.0-35.0); MCHC 28.3 g/dL (31.0-37.0); Mean Platelet Volume 8.7; Microcytosis Marked; Poikilocytosis Moderate; RBC 3.56 m/uL (3.80-5.40); WBC 2.9 k/uL (3.8-10.6)
[2023-06-09 12:29] LABS: HGB 6.6 gm/dL (11.4-16.0)
[2023-06-09 12:34] LABS: INR 1.5 (<1.2); Partial Thromboplastin Time 32.9 sec (22.0-30.0); Prothrombin Time 15.8 sec (10.0-12.5)
[2023-06-09] MEDS ORDERED: guaiFENesin-Coden 100-10MG/5ML 10 ML CUP PO STA (12:43)
[2023-06-09 12:44] LABS: ALT 17 U/L (4-34); AST 22 U/L (14-36); African American GFR (CKD) >90 (>60 ml/min/1.73 sqM); Albumin 4.1 g/dL (3.5-5.0); Alkaline Phosphatase 68 U/L (38-126); Anion Gap 9 mmol/L; Blood Urea Nitrogen 18 mg/dL (7-17); Calcium 9.3 mg/dL (8.4-10.2); Carbon Dioxide 19 mmol/L (22-30); Chloride 112 mmol/L (98-107); Glucose 115 mg/dL (74-99); Non-African American GFR(CKD) 86 (>60 ml/min/1.73 sqM); Potassium 3.9 mmol/L (3.5-5.1); Sodium 140 mmol/L (137-145); Total Bilirubin 0.4 mg/dL (0.2-1.3); Total Protein 6.4 g/dL (6.3-8.2)
[2023-06-09] MEDS ORDERED: ALBUTEROL HFA INHALER INHALATION STA (12:56)
[2023-06-09 13:33] LABS: Band Neutrophils % 1 %; Monocytes # (M) 0.29 k/uL (0-1.0); Neutrophils % (M) 82 %; Nucleated Red Blood Cells 0 /100 WBC (0-0); Total Cells Counted 100
[2023-06-09 13:34] LABS: Platelet Count 92 k/uL (150-450)
[2023-06-09] MEDS ORDERED: BENZONATATE 100 MG CAP PO STA (13:35)
[2023-06-09] MEDS ORDERED: HYDROmorphone 1 MG/ML 1 ML SYRINGE IVP STA (13:44)
[2023-06-09] MEDS ORDERED: ORPHENADRINE 30 MG/ML 2 ML VIAL IVP STA (14:39)
[2023-06-09] MEDS ORDERED: HYDROmorphone 0.5 MG/0.5 ML SYRINGE IVP STA (14:39)
[2023-06-09 15:36] VITALS: RESP 20
[2023-06-09 16:05] VITALS: BP 127/60; PULSE 82; TEMP 98.6
== END 2023-06-09 16:00 | disposition other institution (70) ==
LOC: EC 11:35
DX: U07.1 COVID-19 (principal); K92.2 Gastrointestinal hemorrhage, unspecified; D61.818 Other pancytopenia; I44.30 Unspecified atrioventricular block; E11.9 Type 2 diabetes mellitus without complications; K21.9 Gastro-esophageal reflux disease without esophagitis; I10 Essential (primary) hypertension; E07.9 Disorder of thyroid, unspecified; F17.200 Nicotine dependence, unspecified, uncomplicated; M19.90 Unspecified osteoarthritis, unspecified site; Z79.890 Hormone replacement therapy; Z79.1 Long term (current) use of non-steroidal anti-inflammatories (NSAID); Z79.899 Other long term (current) drug therapy; Z20.822 Contact with and (suspected) exposure to COVID-19
CPT/HCPCS: 99285; 96374; 96375; 96376; 36430; 36415; 94640; 93005; 86900; 86901; 80053; 85025; 85610; 85730; 86850; 86920; 82272; 87636; 71046; P9016; J2360; J1170 ×2

== ENCOUNTER → 2023-09-08 | Outpatient (CLI) | payer MEDICARE, OTHER ==
--- NOTE | 2023-09-11 10:20 | MM ---
Reason for Exam: Screening (asymptomatic). Last mammogram was performed 1 year(s) and 8 month(s) ago. Patient History: Menarche at age 11. First Full-Term at age 20. Postmenopausal. Other cancer, age 70. Cyst Aspiration on the Right side. Risk Values: Rachel 5 year model risk: 1.6%. NCI Lifetime model risk: 3.7%. Prior Study Comparison: 10/14/2019 Bilateral Screening Mammogram, [facility]. 10/28/2020 Bilateral Screening Mammogram, [facility]. 02/02/2022 Bilateral MG 3D screening mammo w/cad, [facility]. Tissue Density: The breasts are almost entirely fatty. Findings: Analyzed By CAD. There is no suspicious group of microcalcifications or new suspicious mass in either breast. Benign calcifications. Overall Assessment: Benign, BI-RAD 2 Management: Screening Mammogram of both breasts in 1 year. . Patient should continue monthly self-breast exams. A clinical breast exam by your physician is recommended on an annual basis. This exam should not preclude additional follow-up of suspicious palpable abnormalities. Note on Rachel scores and lifetime risk: 1. A Rachel score greater than 3% is considered moderate risk. If this is the case, consider specialist referral to assess eligibility for a risk reducing agent. 2. If overall lifetime risk for the development of breast cancer is 20% or higher, the patient may qualify for future screening with alternating mammogram and breast MRI. Electronically signed and approved by: Wil Cuellar M.D. Radiologis
--- NOTE | 2023-09-11 11:55 | BD ---
EXAMINATION TYPE: Axial Bone Density DATE OF EXAM: 09/08/2023 CLINICAL HISTORY: 73 years old Female. ICD-10 CODE: M81.0 AGE RELATED OSTEO Height: 64 in Weight: 214 lbs FRAX RISK QUESTIONS: Secondary Osteoporosis: 3. Menopause before 45: age 43 Current Tobacco Use: yes RISK FACTORS HISTORY OF: Surgery to Spine: c-spine and l-spine MEDICATIONS: Thyroid Medications: yes Which medication: Levothyroxine How Lon+ years EXAM MEASUREMENTS: Bone mineral densitometry was performed using the [employer] System. Bone mineral density about the R hip (g/cm2): 0.926 Bone mineral density about the L hip (g/cm2): 0.953 T Score values are as follows: -----R Neck: -1.2 -----L Neck: -0.8 -----R Total: -0.6 -----L Total: -0.4 Z Score values are as follows: -----R Neck: 0.0 -----L Neck: 0.4 -----R Total: 0.3 -----L Total: 0.5 Bone mineral density has: Decreased -6.7% since study of: 06/23/2021 Bone mineral density about the L Wrist (g/cm2): 0.565 T Score values are as follows: -----Dist. R+U: -1.2 -----Prox. R+U: -1.2 -----Radius total: -1.8 Z Score values are as follows: -----Dist. R+U: 1.0 -----Prox. R+U: 1.0 -----Radius total: 0.4 Bone mineral density has: Decreased -12.3% since study of: 06/23/2021 FRAX%s: The graph provided illustrates a 9.4% chance for a major osteoporotic fx and a 2.3% chance fo r the hips probability for fx in 10 years time. IMPRESSION: Osteopenia (T Score between -2.5 and -1). There is slightly increased risk of fracture and the patient may be considered for treatment. Re-Screen 2-5 years. NOTE: T-SCORE=SD OF THE YOUNG ADULT MEAN.
== END | disposition home or self-care (01) ==
LOC: RADMAMWWP 14:28
PROVIDERS: ATTEND Internal Medicine
DX: Z12.31 Encounter for screening mammogram for malignant neoplasm of breast (principal); M85.89 Other specified disorders of bone density and structure, multiple sites; M81.0 Age-related osteoporosis without current pathological fracture; Z78.0 Asymptomatic menopausal state
CPT/HCPCS: 77063; 77067; 77080

== ENCOUNTER → 2023-11-22 | Outpatient (CLI) | payer MEDICARE, OTHER ==
[2023-11-22 15:34] LABS: Basophils # (A) 0.02 X 10*3/uL (0.00-0.10); Basophils % (A) 0.4 %; Eosinophils # (A) 0.12 X 10*3/uL (0.04-0.35); Eosinophils % (A) 2.2 %; HCT 43.6 % (37.2-46.3); HGB 14.3 g/dL (12.0-15.0); Lymphocytes # (A) 0.36 X 10*3/uL (0.90-5.00); Lymphocytes % (A) 6.6 %; MCH 29.7 pg (27.0-32.0); MCHC 32.8 g/dL (32.0-37.0); MCV 90.5 FL (80.0-97.0); Mean Platelet Volume 9.9 FL (9.5-12.2); Monocytes # (A) 0.45 X 10*3/uL (0.20-1.00); Monocytes % (A) 8.3 %; NRBC Per 100 WBC 0 X 10*3/uL (0.00-0.01); Neutrophils # (A) 4.46 X 10*3/uL (1.80-7.70); Neutrophils % (A) 81.8 %; Platelet Count 223 X 10*3/uL (140-440); RBC 4.82 X 10*6/uL (4.10-5.20); RDW 15.7 % (11.5-14.5); WBC 5.45 X 10*3/uL (4.50-10.00)
== END | disposition home or self-care (01) ==
LOC: LABWHC1 09:52
PROVIDERS: ATTEND Internal Medicine Hematology & Oncology
DX: I10 Essential (primary) hypertension (principal); D50.0 Iron deficiency anemia secondary to blood loss (chronic); D53.8 Other specified nutritional anemias; E78.5 Hyperlipidemia, unspecified; M12.9 Arthropathy, unspecified; E03.9 Hypothyroidism, unspecified
CPT/HCPCS: 36415; 85025

== ENCOUNTER → 2023-12-14 | Outpatient (CLI) | payer MEDICARE, OTHER | END | disposition home or self-care (01) | LOC: LABPRL 08:30 | PROVIDERS: ATTEND Internal Medicine | DX: I10 Essential (primary) hypertension | CPT/HCPCS: 80053; 80061; 82306; 83036; 83735; 84443; 84550; 85027 ==

== ENCOUNTER → 2023-12-22 | Outpatient (CLI) | payer MEDICARE, OTHER ==
--- NOTE | 2024-01-22 07:55 | CTL ---
Site ID synapse default Patient Blanca Stringer ID [id number] Age/Gender: 73Y, N/A Order # N/A Procedure CT LOW DOSE LUNG CANCER SCREENING Date 12/22/2023 7:08:00 AM EXAMINATION TYPE: CT Low Dose Lung DATE OF EXAM ORDERED: 12/29/2023 HISTORY: Personal history of nicotine dependence, 25 pack-year history, current smoker. Lung cancer s creening CT DLP: 140.[address] CTDI: 4.00 mGy Automated exposure control for dose reduction was used. SCREENING VISIT: COMPARISON: TECHNIQUE: Low dose computed tomography scan was performed through the chest at 1 mm thick sections a nd reconstructed images in multiple planes at 1 mm and [address] DIAGNOSTIC QUALITY: Satisfactory FINDINGS: Nodules: Right middle lobe 4 mm solid pulmonary nodule (series 4, image 153). LUNGS: COPD: Severity: None Fibrosis: Severity: None Lymph nodes: None Other findings: None RIGHT PLEURAL SPACE: Effusion: None Calcification: None Thickening: None Pneumothorax: None LEFT PLEURAL SPACE: Effusion: None Calcification: None Thickening: None Pneumothorax: None HEART: Heart Size: Mildly Enlarged Coronary Calcification: Small Pericardial Effusion: None OTHER FINDINGS: Upper abdomen: None Bony thorax: No acute processes. Partial visualization of anterior cervical fusion however. Spinal st imulator leads are identified at the cervical level. DISH of the thoracic spine. Supraclavicular region: None Other: Left mid back spinal stimulator device. IMPRESSION: Right middle lobe [address] LUNG RAD AND CT CHEST RECOMMENDATION: Lung-Rad 2 Benign Appearance or Behavior: Continue annual sc reening with LDCT in 12 months. S Modifier (other clinically significant findings): None
== END | disposition home or self-care (01) ==
LOC: RADCTMAIN 07:00
PROVIDERS: ATTEND Internal Medicine
DX: Z12.2 Encounter for screening for malignant neoplasm of respiratory organs (principal); R91.1 Solitary pulmonary nodule; Z87.891 Personal history of nicotine dependence
CPT/HCPCS: 71271

== ENCOUNTER → 2024-08-16 | Outpatient (CLI) | payer MEDICARE, OTHER ==
--- NOTE | 2024-08-16 14:12 | XR ---
EXAMINATION TYPE: XR lumbosacral spine min 4V DATE OF EXAM: 08/16/2024 1:37 PM COMPARISON: 04/08/2023 CLINICAL INDICATION: Female, 74 years old with history of M54.50 LUMBAR BACK pain TECHNIQUE: XR lumbosacral spine min 4V - Frontal, lateral , bilateral oblique and coned in L5-S1 late ral views of the spine. FINDINGS: No evidence of any acute osseous pathology. No evidence of loss of vertebral body height i s seen. There is normal alignment of the lumbar vertebral bodies. Post surgical changes to the spine with fixation hardware at L4-L5. Hardware appears intact. Discectomy at L4-L5. Moderate multilevel de generation changes with joint space narrowing osteophyte formation disc and facet joint arthropathy. IMPRESSION: 1. No acute fracture. 2. Moderate multilevel disc degeneration. 3. Surgical changes with hardware intact. [facility], , 08/16/2024 2:10 PM
== END | disposition home or self-care (01) ==
LOC: RADXRMAIN 13:15
PROVIDERS: ATTEND Internal Medicine
DX: M51.360 Other intervertebral disc degeneration, lumbar region with discogenic back pain only (principal); M47.816 Spondylosis without myelopathy or radiculopathy, lumbar region
CPT/HCPCS: 72110